=== PATIENT | female | born 1970 | race Caucasian/White ===

== ENCOUNTER 2021-09-30 11:14 | Emergency (ER) | payer MEDICAID, SELFPAY ==
[2021-09-30 11:46] VITALS: BMI 16.6
--- NOTE | 2021-09-30 11:54 | HMH.EDGENADL ---
ED Disposition Clinical Impression: Pyelonephritis Disposition: Home, Self-Care Condition on Discharge: Fair Instructions: DI for Urinary Tract Infection (UTI), DI for Urinary Tract Infection in Children Additional Instructions: Return to the emergency department or follow up with your PCP if symptoms do not begin to resolve. Prescriptions: Cefdinir [Omnicef 300mg Capsule] 300 mg PO BID #20 cap Prescription Printed Referrals: Provider,Referral, MD [Primary Care Provider] - Forms: Work/School Release - Critical Care Critical Care Time: No Attestation: On 09/30/21, the high probability of a clinically significant, sudden or life threatening deterioration of the following system(s) required my full and direct attention, intervention and personal management. The time I documented below is in addition to time spent performing reported procedures but includes the following listed in this critical care notation. Medical Decision Making - Medical Records Medical records reviewed: Yes: I reviewed the patient's medical records. - Sylvain Inquiry Pt receiving controlled substance: No Vital Signs: 09/30/21 12:09 09/30/21 13:27 Temperature 97.9 F 98.1 F Temperature Source Oral Pulse Rate 78 Pulse Rate [Left Radial] 85 Respiratory Rate 18 20 Blood Pressure 133/85 Blood Pressure [Right Arm] 143/91 H Blood Pressure Mean [Right Arm] 108 Blood Pressure Source [Right Arm] Automatic Cuff Blood Pressure Position [Right Arm] Sitting 02 Sat by Pulse Oximetry 98 Oxygen Delivery Method Room Air - Lab Data Lab Results 09/30/21 11:45: Urine Color Yellow, Urine Appearance Sl cloudy, Urine pH 6.0, Ur Specific Bates 1.025, Urine Protein Trace, Urine Glucose (UA) Negative, Urine Ketones Negative, Urine Blood 1+, Urine Nitrate Positive, Urine Bilirubin Negative, Urine Urobilinogen 1.0, Ur Leukocyte Esterase Trace, Urine RBC 5-10, Urine WBC 3-5, Ur Squamous Epith Cells 3-5, Urine Bacteria None Orders (Tests/Meds): ED MEDICATIONS Discontinued Medications Generic Name Dose Route Start Last Admin Trade Name Freq PRN Reason Stop Dose Admin Ibuprofen 600 mg 09/30/21 11:39 09/30/21 11:52 Ibuprofen 600 Mg Tablet PO 09/30/21 11:40 600 mg ONCE ONE Administration ORDERS Category Date Time Status Urine Culture Stat Micro 09/30/21 11:50 Received Medical Decision Narrative: Patient is a 50-year-old female presents emerged department with chief complaint of right-sided flank pain. Differential diagnosis patient includes musculoskeletal strain, pyelonephritis, among others. Given this we will obtain UA. Patient continued to be hemodynamically stable, well-appearing while here in the emergency department. UA is concerning for urinary tract infection, given this we will treat patient with cefdinir. Discussed return precautions, reassessment with her primary care physician. General Adult HPI - General Stated complaint: lower back pain Time Seen by Provider: 09/30/21 11:15 - History of Present Illness HPI narrative: Patient is a 50-year-old female with past medical history of breast cancer status post resection, patient in chemotherapy presenting to the emergency department with chief complaint of right lower back pain. Patient states that the pain has been going on for the past 2 days. She states it feels similar to when she has had a kidney infection in the past. She denies any past medical history of stones, is currently denying dysuria, abdominal pain. States she had 1 episode of emesis this morning. Otherwise she is not feeling nauseous although she has had decreased po intake for the past 2 days. She is denying headache, midline back pain, abdominal pain among others. - Related Data Previous Rx's Medication Instructions Recorded Cefdinir [Omnicef 300mg Capsule] 300 mg PO BID #20 cap 09/30/21 Allergies Allergy/AdvReac Type Severity Reaction Status Date / Time TORRI
[2021-09-30 11:57] LABS: Microscopic, Urine URINE MICROSCOPIC (MICROSCOPIC)
[2021-09-30 11:58] LABS: Appearance,Urine SL CLOUDY (Clear); Bilirubin,Urine Negative (Negative); Blood, Urine 1+ (Negative); Color,Urine YELLOW (Yellow); Glucose,Urine (UA) Negative (Negative); Ketones,Urine Negative (Negative); Leukocyte Esterase,Urine TRACE (Negative); Nitrate,Urine POSITIVE (Negative); Protein,Urine TRACE (Negative); Specific Gravity, Urine 1.025 (1.005-1.030)
[2021-09-30 12:09] VITALS: BP 143/91; PULSE 85; RESP 18; TEMP 36.6; O2SAT 98; BMI 75289.3
[2021-09-30 13:27] VITALS: BP 133/85; PULSE 78; RESP 20; TEMP 36.7; O2SAT 98
== END 2021-09-30 13:28 | disposition home or self-care (01) ==
PROVIDERS: Emergency Provider Emergency Medicine
DX: N12 Tubulo-interstitial nephritis, not specified as acute or chronic (principal); Z88.0 Allergy status to penicillin
CPT/HCPCS: 81001; 87086; 87088; 87186; 99282

== ENCOUNTER 2021-11-24 13:44 | Emergency (ER) | payer MEDICAID, SELFPAY ==
[2021-11-24] VITALS (7 sets, daily range): BP systolic 96–138; BP diastolic 51–85; PULSE 78–95; RESP 12–20; TEMP 36.5–36.8; O2SAT 97–100; BMI 16.4
--- NOTE | 2021-11-24 14:18 | CT_ITS ---
FINAL REPORT CLINICAL HISTORY: abdomen pain, generalized abd pain, denies n/v/d FINDINGS: CT OF THE ABDOMEN AND PELVIS WITH CONTRAST Axial CT images of the abdomen and pelvis were obtained after the administration of oral and iv contrast. Coronal reformatted images were also obtained and reviewed.This study was performed with techniques to keep radiation doses as low as reasonably achievable (ALARA). Individualized dose reduction techniques using automated exposure control or adjustment of mA and/or kV according to the patient's size were employed. Abdomen: There is mild bibasilar scarring.. The heart is normal in size. The liver has an unremarkable appearance, without evidence of mass or biliary ductal dilatation. There is mild nonspecific gallbladder wall thickening. The spleen is unremarkable. No adrenal mass is present. The pancreas has an unremarkable appearance. The kidneys are normal, without evidence of mass or hydronephrosis. The aorta is normal in caliber. There is no free fluid or adenopathy. No mass or abnormal fluid collection is seen. There is mild colon wall thickening with stranding adjacent to the ascending colon which may represent colitis. Pelvis: The appendix is normal. The urinary bladder is unremarkable. No inflammatory process is seen. There is no evidence of mass or adenopathy. There is no evidence of bowel obstruction. IMPRESSION: Mild colon wall thickening with stranding adjacent to the ascending colon may represent colitis. Mild, nonspecific gallbladder wall thickening. Reviewed, Interpreted and Dictated by Ludin Good III, MD Transcribed by Tavia Alicia Authenticated by Ludin Good III, MD on 11/24/2021 04:15:38 PM [facility]
[2021-11-24 14:34] LABS: Microscopic, Urine URINE MICROSCOPIC (MICROSCOPIC)
[2021-11-24 14:37] LABS: Basophils % 0.2 % (0.1-2.0); Hematocrit 42.7 % (37.0-47.0); Hemoglobin 13.8 g/dL (12.2-16.2); Lymphocytes # 1.5 K/mm3 (0.7-4.5); Mean Corpuscular HGB Conc 32.2 g/dL (31.8-35.4); Mean Corpuscular Hemoglobin 38.7 pg (27.0-31.2); Mean Corpuscular Volume 120.2 fl (81-99); Mean Platelet Volume 8.5 fl (7.4-10.4); Monocytes # 0.4 K/mm3 (0.1-1.0); Monocytes % 6.3 % (1.7-9.3); Neutrophils # 3.6 K/mm3 (1.8-7.8); Neutrophils % 65.4 % (37.0-80.0); Platelet Count 249 K/mm3 (142-424); Red Blood Count 3.55 M/mm3 (4.20-5.40); Red Cell Distribution Width 14.9 % (11.5-17.5); White Blood Count 5.5 K/mm3 (4.8-10.8)
[2021-11-24 14:41] LABS: Alanine Aminotransferase 26 U/L (12-78); Albumin Level 4.7 g/dl (3.5-5.0); Albumin/Globulin Ratio 1.4 (1.1-1.8); Alkaline Phosphatase 88 U/L (38-126); Amylase 86 U/L (30-110); Anion Gap 11.3 mEq/L (5-15); Aspartate Amino Transferase 68 U/L (14-36); Bilirubin,Total 0.5 mg/dl (0.2-1.3); Blood Urea Nitrogen 7 mg/dl (7-17); Calcium 8.6 mg/dl (8.4-10.2); Carbon Dioxide 32 mmol/L (22.0-30.0); Chloride 101 mmol/L (98-107); Creatinine Clearance Estimated 51 mL/min (50-200); Estimated Glomerular Filt Rate 76 ml/min (>60); GFR (African American) 92 ML/MIN (>60); Globulin 3.4 g/dL (1.3-3.2); Glucose 87 mg/dl (74-100); Lipase 103 U/L (23-300); Potassium 3.3 mmoL/L (3.5-5.1); Sodium 141 mmol/L (136-145); Total Protein,Serum 8.1 g/dl (6.3-8.2)
[2021-11-24 14:42] LABS: Appearance,Urine SL CLOUDY (Clear); Bilirubin,Urine Negative (Negative); Blood, Urine 1+ (Negative); Color,Urine YELLOW (Yellow); Glucose,Urine (UA) Negative (Negative); Ketones,Urine Negative (Negative); Leukocyte Esterase,Urine 2+ (Negative); Nitrate,Urine POSITIVE (Negative); PH,Urine 6.5 (5.0-8.5); Protein,Urine Negative (Negative); Specific Gravity, Urine 1.015 (1.005-1.030); Urobilinogen,Urine 0.2 EU/dl (0.2)
--- NOTE | 2021-11-24 14:52 | HMH.EDABDPAI ---
ED Disposition Clinical Impression: Colitis, Gallbladder anomaly UTI (urinary tract infection) Qualifiers: Urinary tract infection type: site unspecified Hematuria presence: without hematuria Qualified Code(s): N39.0 - Urinary tract infection, site not specified Disposition: Home, Self-Care Condition on Discharge: Good Instructions: DI for Colitis Prescriptions: Sulfamethoxazole/Trimethoprim [Bactrim DS tablet] 1 each PO BID #14 tab Prescription Printed metroNIDAZOLE [metroNIDAZOLE 500mg Tablet] 500 mg PO TID #30 tab Prescription Printed Referrals: ProviderMarie MD [Primary Care Provider] - Ludin Byrd MD [Staff Physician] - - Critical Care Critical Care Time: No Attestation: On 11/24/21, the high probability of a clinically significant, sudden or life threatening deterioration of the following system(s) required my full and direct attention, intervention and personal management. The time I documented below is in addition to time spent performing reported procedures but includes the following listed in this critical care notation. Medical Decision Making - Medical Records Medical records reviewed: Yes: I reviewed the patient's medical records. - Sylvain Inquiry Pt receiving controlled substance: No Vital Signs: 11/24/21 13:45 11/24/21 14:21 11/24/21 14:30 Temperature 97.7 F Temperature Source Oral Pulse Rate 84 90 Pulse Rate [Left Radial] 91 H Respiratory Rate 15 13 15 Blood Pressure 138/85 131/73 Blood Pressure [Right Arm] 96/51 L Blood Pressure Mean 102 92 Blood Pressure Mean [Right Arm] 66 Blood Pressure Source [Right Arm] Automatic Cuff Blood Pressure Position [Right Arm] Sitting 02 Sat by Pulse Oximetry 99 100 99 Oxygen Delivery Method Room Air 11/24/21 15:31 Temperature Temperature Source Pulse Rate 95 H Pulse Rate [Left Radial] Respiratory Rate 20 Blood Pressure 102/77 L Blood Pressure [Right Arm] Blood Pressure Mean 83 Blood Pressure Mean [Right Arm] Blood Pressure Source [Right Arm] Blood Pressure Position [Right Arm] 02 Sat by Pulse Oximetry 100 Oxygen Delivery Method - Lab Data Lab Results 11/24/21 14:20: Urine Color Yellow, Urine Appearance Sl cloudy, Urine pH 6.5, Ur Specific Lor[place] 1.015, Urine Protein Negative, Urine Glucose (UA) Negative, Urine Ketones Negative, Urine Blood 1+, Urine Nitrate Positive, Urine Bilirubin Negative, Urine Urobilinogen 0.2, Ur Leukocyte Esterase 2+ A, Urine RBC 3-5, Urine WBC 5-10, Ur Squamous Epith Cells 3-5, Urine Bacteria Trace 11/24/21 14:20: WBC 5.5, RBC 3.55 L, Hgb 13.8, Hct 42.7, MCV 120.2 H, MCH 38.7 H, MCHC 32.2, RDW 14.9, Plt Count 249, MPV 8.5, Neut % (Auto) 65.4, Lymph % (Auto) 28.0, [place] % (Auto) 6.3, Eos % (Auto) 0.0 L, Baso % (Auto) 0.2, Neut # (Auto) 3.6, Lymph # (Auto) 1.5, [place] # (Auto) 0.4, Eos # (Auto) 0.0, Baso # (Auto) 0.0 11/24/21 14:20: Sodium 141, Potassium 3.3 L, Chloride 101, Carbon Dioxide 32 H, Anion Gap 11.3, BUN 7, Creatinine 0.80, Estimated Creat Clear 51, Estimated GFR 76, Est GFR ( Amer) 92, Glucose 87, Calcium 8.6, Total Bilirubin 0.5, AST 68 H, ALT 26, Alkaline Phosphatase 88, Total Protein 8.1, Albumin 4.7, Globulin 3.4 H, Albumin/Globulin Ratio 1.4, Amylase 86, Lipase 103 Result diagrams: 11/24/21 14:20 11/24/21 14:20 Orders (Tests/Meds): ED MEDICATIONS Generic Name Dose Route Start Last Admin Trade Name Freq PRN Reason Stop Dose Admin Dicyclomine HCl 20 mg 11/24/21 16:23 Dicyclomine 10mg Capsule PO 11/24/21 16:24 ONCE ONE Discontinued Medications Generic Name Dose Route Start Last Admin Trade Name Freq PRN Reason Stop Dose Admin Sodium Chloride 1,000 mls @ 999 mls/hr 11/24/21 14:30 11/24/21 14:25 Sod Chlor 0.9% 1000ml Bag IV 11/24/21 15:30 999 mls/hr .Q1H1M RUSTY Administration Iopamidol 65 ml 11/24/21 15:15 11/24/21 15:16 Iopamidol-370 (76%);100ml Bottle IV 11/24/21 15:16 65 ml ONCE ONE Administration Ke
--- NOTE | 2021-11-24 15:15 | PC.NURSE ---
notified rad of CT order, spoke with Juan
[2021-11-24 15:39] LABS: Bacteria,Urine Trace /lpf
--- NOTE | 2021-11-24 16:26 | PC.NURSE ---
asked ER MD about antibiotics for colitis r/t CT finding, ER gave no new orders at this time
== END 2021-11-24 16:40 | disposition home or self-care (01) ==
PROVIDERS: Emergency Provider Emergency Medicine
DX: N39.0 Urinary tract infection, site not specified (principal); A49.8 Other bacterial infections of unspecified site; Z79.899 Other long term (current) drug therapy; Z88.0 Allergy status to penicillin
CPT/HCPCS: 74177; 80053; 81001; 82150; 83690; 85025; 87086; 87088; 87186; 96361; 96365; 96374; 96375; 99284; J2405; Q9967

== ENCOUNTER 2022-10-18 09:28 | Emergency (ER) | payer MEDICAID, SELFPAY ==
[2022-10-18 09:29] VITALS: BP 143/90; PULSE 104; RESP 17; TEMP 36.4; O2SAT 99; BMI 14.4
--- NOTE | 2022-10-18 09:38 | HMH.EDGENADL ---
Discharge Plan Disposition Patient Disposition: Home, Self-Care Prescriptions Prescriptions: New hydroxyzine pamoate [Vistaril] 25 mg capsule 25 mg PO Q8H PRN (Reason: itching ) 7 Days Qty: 20 0RF No Action cefdinir 300 MG capsule 300 mg PO BID Qty: 20 0RF metronidazole 500 MG tablet 500 mg PO TID Qty: 30 0RF sulfamethoxazole-trimethoprim 1 EACH tablet 1 each PO BID Qty: 14 0RF Referrals Follow up/Referrals: Provider,Referral, MD [Primary Care Provider] - See instructions Activity Restrictions/Add. Instructions Additional Instructions/Restrictions: He presented today with an urticarial rash. This is possibly secondary to your clindamycin. Please stop your clindamycin follow-up with your dentist to discuss changing medication. You been given a dose of dexamethasone which should last 72 hours and no need for additional steroids. You may take your Vistaril as needed for itching. Please return with any systemic symptoms of an anaphylactic reaction including wheezing shortness of breath vomiting or passing out. Clinical Impressions Clinical Impression: Urticarial rash, Adverse drug reaction Instructions Patient Instructions: DI for Skin Abscess Discharge ED Provider: Nj Remy General Adult HPI General Chief complaint: Skin/Abscess/Foreign Body Stated complaint: Rash Time Seen by Provider: 10/18/22 09:38 History of Present Illness HPI narrative: Patient is a 51-year-old female presenting today with a rash. States that its been diffuse in nature multiple different locations of her body states at times that it has been raised like hives. Denies any respiratory symptoms GI symptoms or cardiovascular symptoms. Denies any history of IgE mediated allergic reactions. Denies any history of anaphylaxis. States that she recently began clindamycin for a dental infection. She is on clindamycin because she has a penicillin allergy. She has not tried any medications at home. Denies any pain or other symptoms at this moment Related Data Previous Rx's Medication Instructions Recorded cefdinir 300 mg capsule 300 mg PO BID #20 caps 09/30/21 metronidazole 500 mg tablet 500 mg PO TID #30 tabs 11/24/21 sulfamethoxazole 800 1 each PO BID #14 tabs 11/24/21 mg-trimethoprim 160 mg tablet hydroxyzine pamoate 25 mg capsule 25 mg PO Q8H PRN itching 7 days 10/18/22 (Vistaril) #20 caps Allergies Allergy/AdvReac Type Severity Reaction Status Date / Time PENICILLIN Allergy Intermediate HIVES/RASH Uncoded 08/30/17 14:56 [facility] Disclaimer: The information contained in this section may have been updated after the patient was seen, as this information can be updated by other users. Medical History (Updated 10/18/22 @ 09:51 by Nj Remy MD) Breast cancer Family History (Updated 10/18/22 @ 09:45 by Maryellen Baker RN) Other No significant family history Social History (Updated 10/18/22 @ 09:45 by Maryellen Baker RN) Smoking Status: Current every day smoker alcohol intake: current current occupational status: other Travel in the last 8 weeks: None ROS Obtained: Yes All systems reviewed & no additional complaints except as documented Physical Exam General General appearance: alert and in no apparent distress Head Head exam: atraumatic and normocephalic Eye Eye exam: Present normal appearance, PERRL and EOMI ENT ENT exam: Present normal exam and normal oropharynx Neck Neck exam: Present normal inspection and full ROM Chest Chest inspection: Present normal inspection and symmetric chest wall rise Respiratory Respiratory exam: Present normal lung sounds bilaterally; Absent respiratory distress Cardiovascular Cardiovascular exam: Present regular rate; Absent tachycardia Neurological Exam Neurological exam: Present alert and oriented X3 Skin Skin exam: Present other (There is a diffuse erythematous rash confluent along her abdomen upper arms and some on her back.
--- NOTE | 2022-10-18 09:38 | PC.NURSE ---
DR WALLACE AT BEDSIDE TO EVALUATE PT
[2022-10-18 10:00] VITALS: BP 127/86; PULSE 101; O2SAT 98
[2022-10-18 10:02] VITALS: BP 127/86; PULSE 103; RESP 18; TEMP 36.4; O2SAT 97
== END 2022-10-18 10:02 | disposition home or self-care (01) ==
PROVIDERS: Emergency Provider Student in an Organized Health Care Education/Training Program
DX: L50.0 Allergic urticaria (principal); F17.210 Nicotine dependence, cigarettes, uncomplicated
CPT/HCPCS: 99283; 99284

== ENCOUNTER 2022-10-19 12:17 | Emergency (ER) | payer MEDICAID, SELFPAY ==
[2022-10-19] VITALS (9 sets, daily range): BP systolic 92–157; BP diastolic 59–97; PULSE 58–81; RESP 14–23; TEMP 36.4–36.7; O2SAT 96–100; BMI 14.4
--- NOTE | 2022-10-19 12:06 | ECG_ITS ---
APPROVED REPORT Exam: Resting ECG HR:70 bpm ECG Measurements Heart Rate [address] 165 P 90 QRSd 93 QRS 88 QT 419 T 72 QTc 440 Conclusion SINUS RHYTHM WITH MARKED SINUS ARRHYTHMIA POSSIBLE RIGHT VENTRICULAR CONDUCTION DELAY [RSR (QR) IN V1/V2] BORDERLINE ECG UNCONFIRMED REPORT Electronically signed by : Kranthi Reinoso MD 10/19/2022 20:19:45
--- NOTE | 2022-10-19 12:25 | XR_ITS ---
FINAL REPORT CLINICAL HISTORY: mid sternal pain FINDINGS: TWO-VIEW CHEST The heart size is normal. The mediastinum is normal. There is streaky opacity in the right middle lobe which may be due to mild infiltrate. There is no pneumothorax. IMPRESSION: Right middle lobe opacity, may be due to mild infiltrate. Reviewed, Interpreted and Dictated by Rajan Anna MD Transcribed by Reyna Martinez Authenticated and [facility]
[2022-10-19 13:06] LABS: Basophils # 0.1 K/mm3 (0-0.2); Basophils % 0.6 % (0.1-2.0); Hematocrit 41.1 % (37.0-47.0); Hemoglobin 13.7 g/dL (12.2-16.2); Lymphocytes # 1.3 K/mm3 (0.7-4.5); Lymphocytes % 9.4 % (10-50); Mean Corpuscular HGB Conc 33.4 g/dL (31.8-35.4); Mean Corpuscular Hemoglobin 36.6 pg (27.0-31.2); Mean Corpuscular Volume 109.5 fl (81-99); Mean Platelet Volume 8.4 fl (7.4-10.4); Monocytes # 0.6 K/mm3 (0.1-1.0); Monocytes % 4.6 % (1.7-9.3); Neutrophils # 11.2 K/mm3 (1.8-7.8); Neutrophils % 85.3 % (37.0-80.0); Platelet Count 263 K/mm3 (142-424); Red Blood Count 3.75 M/mm3 (4.20-5.40); Red Cell Distribution Width 14.9 % (11.5-17.5); White Blood Count 13.2 K/mm3 (4.8-10.8)
[2022-10-19 13:08] LABS: MANUAL DIFFERENTIAL MANUAL DIFFERENTIAL (MANUAL DIFF)
[2022-10-19 13:22] LABS: Lymphocytes % 12 % (10-50); Monocytes % 10 % (2-9); Neutrophils % 78 % (42-76); Total Cells Counted 100
[2022-10-19 13:23] LABS: Platelet Estimate Normal; RBC Morphology Normal
--- NOTE | 2022-10-19 13:32 | HMH.EDGENADL ---
Discharge Plan Disposition Patient Disposition: Home, Self-Care Condition: Good Prescriptions Prescriptions: New levofloxacin 500 mg tablet 500 mg PO DAILY 7 Days Qty: 7 0RF metronidazole 500 mg tablet 500 mg PO Q8H 10 Days Qty: 30 0RF ondansetron 4 mg tablet,disintegrating 4 mg PO Q8H PRN (Reason: nausea and vomiting) Qty: 10 0RF No Action cefdinir 300 MG capsule 300 mg PO BID Qty: 20 0RF metronidazole 500 MG tablet 500 mg PO TID Qty: 30 0RF sulfamethoxazole-trimethoprim 1 EACH tablet 1 each PO BID Qty: 14 0RF hydroxyzine pamoate [Vistaril] 25 mg capsule 25 mg PO Q8H PRN (Reason: itching ) 7 Days Qty: 20 0RF Referrals Follow up/Referrals: Provider,Referral, MD [Primary Care Provider] - See instructions Activity Restrictions/Add. Instructions Additional Instructions/Restrictions: Levaquin and Flagyl as prescribed. Zofran as needed for nausea. Collect a diarrhea sample using the provided supplies and return it along with the order form to ER registration at [facility] for testing. Obtain the results of this test from your primary care provider the next day. Follow-up with primary care provider, call tomorrow to make appointment. Additional instructions for ABDOMINAL PAIN: See your physician as soon as possible for further evaluation. Return immediately if worsening abdominal pain, vomiting, shortness of breath, fever, vomiting of blood or abdominal distention. Additional instructions for CHEST PAIN: See your physician as soon as possible for further evaluation. Return immediately if worsening chest pain, vomiting, shortness of breath, fever, coughing of blood. Clinical Impressions Clinical Impression: Colitis, Atypical chest pain, Pneumonia Stand Alone Forms Stand Alone Forms: Work/School Release Instructions Patient Instructions: DI for Atypical Chest Pain, DI for Colitis Discharge ED Provider: Cyril Sullivan General Adult HPI General Chief complaint: Chest Pain Stated complaint: CP Time Seen by Provider: 10/19/22 13:35 Mode of Arrival: EMS Source of Information: Patient, EMS and Medical Record Limitations: No Limitations Description of Symptoms (Recalled from ER Triage Doc. by RN): c/o n/v and mid sternal pain, states the chest pain gets worse after she vomits. Symptoms started today History of Present Illness HPI narrative: Patient states that this morning she developed epigastric pain vomiting and diarrhea. 2 episodes of diarrhea without blood. Multiple episodes of vomiting. After she began vomiting she also developed chest pain up and down her sternal area. Denies shortness of breath or diaphoresis. She does not have a known history of heart disease. She is a smoker. She does not have hypertension, diabetes, or hyperlipidemia. Her father has had a heart attack. She has never had any abdominal surgeries. She was seen in this emergency department yesterday for an urticarial rash. She had recently been started on clindamycin about a week ago by her dentist. That medication was stopped and she was put on steroids and hydroxyzine. Her urticaria is now better. Related Data Previous Rx's Medication Instructions Recorded cefdinir 300 mg capsule 300 mg PO BID #20 caps 09/30/21 metronidazole 500 mg tablet 500 mg PO TID #30 tabs 11/24/21 sulfamethoxazole 800 1 each PO BID #14 tabs 11/24/21 mg-trimethoprim 160 mg tablet hydroxyzine pamoate 25 mg capsule 25 mg PO Q8H PRN itching 7 days 10/18/22 (Vistaril) #20 caps levofloxacin 500 mg tablet 500 mg PO DAILY 7 days #7 tabs 10/19/22 metronidazole 500 mg tablet 500 mg PO Q8H 10 days #30 tabs 10/19/22 ondansetron 4 mg disintegrating 4 mg PO Q8H PRN nausea and 10/19/22 tablet vomiting #10 tabs Allergies Allergy/AdvReac Type Severity Reaction Status Date / Time PENICILLIN Allergy Intermediate HIVES/RASH Uncoded 08/30/17 14:56 [facility] Disclaimer: The information contained in this section m
--- NOTE | 2022-10-19 13:42 | CT_ITS ---
FINAL REPORT TECHNIQUE: After the administration of intravenous contrast, axial images were obtained through the abdomen and pelvis by computed tomography. The study was performed with techniques to keep radiation dose as low as reasonably achievable, (ALARA). Individual dose reduction techniques using automated exposure control or adjustment of mA and/or kV according to the patient's size were employed. CLINICAL HISTORY: abdo pain COMPARISON: November 2021 FINDINGS: Abdomen: The lung bases are clear. The liver parenchyma is homogeneous. The gallbladder is present. The spleen, pancreas, adrenals and kidneys appear unremarkable. The aorta is normal in caliber. There is no free fluid or adenopathy. There is prominence of the colonic mucosa particularly the transverse, descending and sigmoid consistent with acute infectious or inflammatory colitis. Pelvis: The appendix is not identified. The urinary bladder is unremarkable. There is a trace amount of free fluid of uncertain etiology. IMPRESSION: Acute infectious or inflammatory colitis. Reviewed, Interpreted and Dictated by Rajan Anna MD Transcribed by Rickie Hale Authenticated and [facility]
[2022-10-19 13:51] LABS: Amylase 80 U/L (30-110); Anion Gap 4.4 mEq/L (5-15); Blood Urea Nitrogen 14 mg/dl (7-17); Carbon Dioxide 24 mmol/L (22.0-30.0); Chloride 105 mmol/L (98-107); Creatinine Clearance Estimated 45 mL/min (50-200); Estimated Glomerular Filt Rate 76 ml/min (>60); GFR (African American) 92 ML/MIN (>60); Glucose 129 mg/dl (74-100); Lipase 93 U/L (23-300); Potassium 3.4 mmoL/L (3.5-5.1); Sodium 130 mmol/L (136-145)
--- NOTE | 2022-10-19 14:07 | PC.NURSE ---
contacted radiology for ct scan
--- NOTE | 2022-10-19 14:08 | PC.NURSE ---
contacted lab for added liver panel
[2022-10-19 14:19] LABS: Alanine Aminotransferase 15 U/L (12-78); Aspartate Amino Transferase 32 U/L (14-36); Bilirubin,Unconjugated 0.8 mg/dL (0.0-1.1)
[2022-10-19 14:20] LABS: Albumin Level 4.1 g/dl (3.5-5.0); Alkaline Phosphatase 85 U/L (38-126); Bilirubin,Direct 0.3 mg/dl (0.0-0.4); Bilirubin,Indirect 0.8 mg/dL (0.0-0.9); Bilirubin,Total 1.1 mg/dl (0.2-1.3); Total Protein,Serum 7.3 g/dl (6.3-8.2)
--- NOTE | 2022-10-19 14:43 | PC.NURSE ---
pt ambulatory to restroom, no complications
[2022-10-19 14:45] LABS: Troponin I < 0.01 ng/ml (0.00-0.034)
--- NOTE | 2022-10-19 16:09 | PC.NURSE ---
rounded on pt, no needs at this time
[2022-10-19 17:16] LABS: Troponin I < 0.01 ng/ml (0.00-0.034)
== END 2022-10-19 17:54 | disposition home or self-care (01) ==
PROVIDERS: Emergency Provider Emergency Medicine
DX: R07.89 Other chest pain (principal); J18.9 Pneumonia, unspecified organism; K52.9 Noninfective gastroenteritis and colitis, unspecified; F17.210 Nicotine dependence, cigarettes, uncomplicated; Z85.3 Personal history of malignant neoplasm of breast
CPT/HCPCS: 71046; 74177; 80048; 80076; 82150; 83690; 84484; 85007; 85025; 93005; 96361; 96374; 96375; 99285; Q9967

== ENCOUNTER 2023-08-11 10:40 | Inpatient (IN) | payer SELFPAY ==
[2023-08-11] VITALS (9 sets, daily range): BP systolic 94–106; BP diastolic 49–68; PULSE 94–138; RESP 16–23; TEMP 36.5–36.9; O2SAT 98–99; BMI 14.4; BMI 14.7
--- NOTE | 2023-08-11 10:51 | XR_ITS ---
FINAL REPORT CLINICAL HISTORY: dyspnea covid since tuesday (08/07/23) COMPARISON: 10/19/2022 FINDINGS: SINGLE-VIEW CHEST The heart size is normal. The mediastinum is normal. There is a large dense region of apparent airspace opacity in the left upper lobe measuring 8.5 x 6.0 cm, favor to represent acute pneumonia. No effusion is identified. There is no pneumothorax. IMPRESSION: Large opacity in the left upper lobe favored to represent acute pneumonia. Recommend follow-up radiographs. If opacity persists, CT scan may be of value. Reviewed, Interpreted and Dictated by Rajan Anna MD Transcribed by Reyna Martinez Authenticated and [facility]
--- NOTE | 2023-08-11 10:53 | HMH.EDGENADL ---
Discharge Plan Disposition Patient Disposition: Admitted Prescriptions Prescriptions: No Action No Known Home Medications Referrals Follow up/Referrals: Provider,Marie, [Primary Care Provider] - See instructions Clinical Impressions Clinical Impression: Necrotizing pneumonia, Tachycardia, COVID-19, Sepsis Discharge ED Provider: Val Ballesteros General Adult HPI General Chief complaint: Fever Stated complaint: covid positive, cough congestion fever vomiting Time Seen by Provider: 08/11/23 10:47 History of Present Illness HPI narrative: Patient is a 52-year-old female with a history of chronic smoking but does not carry diagnosis of COPD presents today with 4 days of cough fevers chills body aches some nausea decreased p.o. intake. No respiratory distress from historical standpoint. Dates that she took a home COVID test which was positive. Related Data Home Medications Medication Instructions Recorded Confirmed No Known Home Medications 08/11/23 08/11/23 Allergies Allergy/AdvReac Type Severity Reaction Status Date / Time penicillin G Allergy Severe Hives Verified 08/11/23 11:43 [facility] PFS Disclaimer: The information contained in this section may have been updated after the patient was seen, as this information can be updated by other users. Medical History (Updated 08/11/23 @ 12:09 by Dudley Remy MD) Breast cancer Family History (Updated 10/18/22 @ 09:45 by Maryellen Baker RN) Other No significant family history Social History (Updated 10/18/22 @ 09:51 by Dudley Remy MD) Smoking Status: Current every day smoker alcohol intake: current current occupational status: other Travel in the last 8 weeks: None ROS Obtained: Yes All systems reviewed & no additional complaints except as documented Physical Exam General General appearance: cachectic Respiratory Respiratory exam: Absent normal lung sounds bilaterally, respiratory distress, wheezes, stridor or accessory muscle use Cardiovascular Cardiovascular exam: Present tachycardia (Heart rate 140 on my exam) Neurological Exam Neurological exam: Present alert and oriented X3 Medical Decision Making Sylvain Inquiry Pt receiving controlled substance: No Vital Signs: 08/11/23 10:41 08/11/23 12:00 Temperature 98.4 F Temperature Source Oral Pulse Rate 120 H Pulse Rate [Left Radial] 138 H Respiratory Rate 20 21 Blood Pressure 100/62 L Blood Pressure [Right Arm] 94/68 L Blood Pressure Mean 70 Blood Pressure Mean [Right Arm] 76 Blood Pressure Source [Right Arm] Automatic Cuff Blood Pressure Position [Right Arm] Sitting 02 Sat by Pulse Oximetry 99 98 Oxygen Delivery Method Room Air Room Air Lab Data Lab results reviewed: Yes I reviewed the patient's lab results. Lab Results 08/11/23 10:55: WBC 26.4 H*, RBC 3.84 L, Hgb 14.0, Hct 41.4, MCV 107.8 H, MCH 36.4 H, MCHC 33.8, RDW 13.0, Plt Count 679 H, MPV 8.2, Neut % (Auto) 87.8 H, Lymph % (Auto) 3.5 L, [place] % (Auto) 8.3, Eos % (Auto) 0.2, Baso % (Auto) 0.2, Neut # (Auto) 23.2 H, Lymph # (Auto) 0.9, [place] # (Auto) 2.2 H, Eos # (Auto) 0.1, Baso # (Auto) 0.1, Sodium 123 L, Potassium 3.4 L, Chloride 85 L, Carbon Dioxide 29, Anion Gap 12.4, BUN 20 H, Creatinine 0.90, Estimated Creat Clear 39, Estimated GFR 66, Est GFR ( Amer) 80, Glucose 119 H, Calcium 8.3 L, Total Bilirubin 0.8, AST 108 H, ALT 36, Alkaline Phosphatase 136 H, Total Protein 7.6, Albumin 3.7, Globulin 3.9 H, Albumin/Globulin Ratio 0.9 L 08/11/23 10:55 08/11/23 10:55 Orders (Tests/Meds): ED MEDICATIONS Generic Name Dose Route Start Last Admin Trade Name Fidel PRN Reason Stop Dose Admin Ceftriaxone Sodium 2 gm/ 100 mls @ 200 mls/hr 08/11/23 11:45 08/11/23 12:07 Sodium Chloride IV 08/21/23 11:44 Not Given Q12H RUSTY Metronidazole 500 mg in 100 mls @ 100 mls/hr 08/11/23 11:36 Flagyl 500mg/100ml Ivpb IV 08/11/23 12:35
[2023-08-11 11:05] LABS: Basophils # 0.1 K/mm3 (0-0.2); Basophils % 0.2 % (0.1-2.0); Eosinophils # 0.1 K/mm3 (0.0-0.4); Eosinophils % 0.2 % (0.1-12.0); Hematocrit 41.4 % (37.0-47.0); Lymphocytes # 0.9 K/mm3 (0.7-4.5); Lymphocytes % 3.5 % (10-50); Mean Corpuscular HGB Conc 33.8 g/dL (31.8-35.4); Mean Corpuscular Hemoglobin 36.4 pg (27.0-31.2); Mean Corpuscular Volume 107.8 fl (81-99); Mean Platelet Volume 8.2 fl (7.4-10.4); Monocytes # 2.2 K/mm3 (0.1-1.0); Monocytes % 8.3 % (1.7-9.3); Neutrophils # 23.2 K/mm3 (1.8-7.8); Neutrophils % 87.8 % (37.0-80.0); Red Blood Count 3.84 M/mm3 (4.20-5.40)
[2023-08-11 11:16] LABS: Chloride 85 mmol/L (98-107); Sodium 123 mmol/L (136-145)
[2023-08-11 11:17] LABS: Potassium 3.4 mmoL/L (3.5-5.1)
[2023-08-11 11:19] LABS: Alanine Aminotransferase 36 U/L (12-78); Alkaline Phosphatase 136 U/L (38-126); Anion Gap 12.4 mEq/L (5-15); Aspartate Amino Transferase 108 U/L (14-36); Bilirubin,Total 0.8 mg/dl (0.2-1.3); Blood Urea Nitrogen 20 mg/dl (7-17); Carbon Dioxide 29 mmol/L (22.0-30.0); Creatinine Clearance Estimated 39 mL/min (50-200); Estimated Glomerular Filt Rate 66 ml/min (>60); GFR (African American) 80 ML/MIN (>60)
[2023-08-11 11:20] LABS: Albumin Level 3.7 g/dl (3.5-5.0); Albumin/Globulin Ratio 0.9 (1.1-1.8); Calcium 8.3 mg/dl (8.4-10.2); Globulin 3.9 g/dL (1.3-3.2); Glucose 119 mg/dl (74-100); Total Protein,Serum 7.6 g/dl (6.3-8.2)
[2023-08-11 11:29] LABS: Platelet Count 679 K/mm3 (142-424); White Blood Count 26.4 K/mm3 (4.8-10.8)
[2023-08-11 11:30] LABS: MANUAL DIFFERENTIAL MANUAL DIFFERENTIAL (MANUAL DIFF)
--- NOTE | 2023-08-11 11:59 | EXP.PHA.CONS ---
Pharmacy Consult Date: 08/11/23 Time: 11:59 Referring provider: DR. JONES Reason for Consult:: VANCOMYCIN DOSING Allergies Allergy/AdvReac Type Severity Reaction Status Date / Time penicillin G Allergy Severe Hives Verified 08/11/23 11:43 Home Medications Medication Instructions Recorded Confirmed Type cefdinir 300 mg capsule 300 mg PO BID #20 caps 09/30/21 Rx metronidazole 500 mg tablet 500 mg PO TID #30 tabs 11/24/21 Rx sulfamethoxazole 800 1 each PO BID #14 tabs 11/24/21 Rx mg-trimethoprim 160 mg tablet hydroxyzine pamoate 25 mg capsule 25 mg PO Q8H PRN itching 7 days 10/18/22 Rx (Vistaril) #20 caps levofloxacin 500 mg tablet 500 mg PO DAILY 7 days #7 tabs 10/19/22 Rx metronidazole 500 mg tablet 500 mg PO Q8H 10 days #30 tabs 10/19/22 Rx ondansetron 4 mg disintegrating 4 mg PO Q8H PRN nausea and 10/19/22 Rx tablet vomiting #10 tabs New Prescriptions to Start Prescriptions: Height: 1.52 m Weight: 33.566 kg Laboratory Results:: Laboratory Results - last 24 hr 08/11/23 10:55: WBC 26.4 H*, RBC 3.84 L, Hgb 14.0, Hct 41.4, MCV 107.8 H, MCH 36.4 H, MCHC 33.8, RDW 13.0, Plt Count 679 H, MPV 8.2, Neut % (Auto) 87.8 H, Lymph % (Auto) 3.5 L, [place] % (Auto) 8.3, Eos % (Auto) 0.2, Baso % (Auto) 0.2, Neut # (Auto) 23.2 H, Lymph # (Auto) 0.9, [place] # (Auto) 2.2 H, Eos # (Auto) 0.1, Baso # (Auto) 0.1, Sodium 123 L, Potassium 3.4 L, Chloride 85 L, Carbon Dioxide 29, Anion Gap 12.4, BUN 20 H, Creatinine 0.90, Estimated Creat Clear 39, Estimated GFR 66, Est GFR ( Amer) 80, Glucose 119 H, Calcium 8.3 L, Total Bilirubin 0.8, AST 108 H, ALT 36, Alkaline Phosphatase 136 H, Total Protein 7.6, Albumin 3.7, Globulin 3.9 H, Albumin/Globulin Ratio 0.9 L Medical History: Medical History (Updated 08/11/23 @ 10:56 by Dudley Remy MD) Breast cancer Assessment and Plan Assessment and plan all Dx Assessment and Plan for all problems:: Pharmacokinetic dosing service Objective: Patient: Floor: Age: 52 yo Serum creatinine: 0.9 mg/dL Height: 60.0 Inches Weight (kg): 33.5 Assessment: IBW (kg): 50.00 Dosing wt(kg): 33.5 Estimated Creatinine clearance (ml/min): 46.0 CRCL method: Cockcroft and Gault using ibw(default). Drug selected: Vancomycin Loading dose (mg): 0 Vd (liters): 26.8 (factor used: 0.8 L/kg) Benjamin (hr-1): 0.043 Half life (hrs): 16.12 Recommended dose: 500 mg Interval: 18 hrs Infusion time (hrs): 2.0 Predicted peak (mcg/mL): 33.2 Predicted trough (mcg/mL): 16.69 Total body weight is being used for vancomycin dosing. Recommendations: Give 1x dose of vancomcyin 750 mg. Then continue with vancomycin 500 mg q 18 hrs with an expected Cpeak of 33.2 mcg/ml and an expected Ctrough of 16.69 mcg/ml. ----Vanco only - ignore for aminoglycosides----- CLvanco= 1.15 L/hr AUC 0-24 /CRISTOPHER Data: CRISTOPHER 0.5 mcg/mL: AUC/CRISTOPHER: 1159.4 CRISTOPHER 1.0 mcg/mL: AUC/CRISTOPHER: 579.7 --------- CRISTOPHER 1.5 mcg/mL: AUC/CRISTOPHER: 386.5 CRISTOPHER 2.0 mcg/mL: AUC/CRISTOPHER: 289.9
[2023-08-11 12:04] LABS: Coronavirus 19, PCR Not Detected (NotDetected); Influenza A, PCR Not Detected (NotDetected); Influenza B, PCR Not Detected (NotDetected)
[2023-08-11 12:07] LABS: Lymphocytes % 6 % (10-50); Monocytes % 7 % (2-9); Neutrophils % 86 % (42-76); Total Cells Counted 100
--- NOTE | 2023-08-11 12:07 | CT_ITS ---
FINAL REPORT TECHNIQUE: Axial images were obtained through the chest without contrast. Sagittal and coronal reformatted images were obtained and reviewed. This study was performed with techniques to keep radiation doses as low as reasonably achievable (ALARA). Individualized dose reduction techniques using automated exposure control or adjustment of mA and/or kV according to the patient's size were employed. CLINICAL HISTORY: further characterization of JORGE L pna FINDINGS: There are few small calcified mediastinal lymph nodes. The heart size is normal. There is no pericardial or pleural effusion. Limited images of the upper abdomen are unremarkable. There is dense airspace opacity throughout the posterior left upper lobe consistent with acute pneumonia. There are advanced changes of centrilobular emphysema. IMPRESSION: Dense left upper lobe airspace opacity consistent with acute pneumonia. Reviewed, Interpreted and Dictated by Rajan Anna MD Transcribed by Reyna Martinez Authenticated and [facility]
[2023-08-11 12:09] LABS: Platelet Estimate Marked Increase; Stomatocytes 2+
[2023-08-11 12:10] LABS: Polychromasia 1+
--- NOTE | 2023-08-11 12:12 | PC.NURSE ---
call made to care management for bed placement
[2023-08-11 12:14] LABS: Lactic Acid 1.6 mmol/L (0.7-2.1)
--- NOTE | 2023-08-11 13:55 | PC.NURSE ---
report called to Denise BERTRAND
--- NOTE | 2023-08-11 14:53 | EXP.PULM.CON ---
History of Present Illness History of present illness: Ms. Skaggs is a 52-year-old female current smoker greater than [id number] smoker is not in any baseline inhaler therapy or oxygen at home, history of breast cancer 15 years ago presented to hospital worsening respiratory distress along with cough and productive phlegm found to be having significant left upper lobe pneumonia and was admitted to the hospital for further evaluation and management. [facility] Disclaimer: The information contained in this section may have been updated after the patient was seen, as this information can be updated by other users. Medical History (Updated 08/11/23 @ 14:56 by Amilcar Mack MD) Breast cancer Family History (Updated 08/11/23 @ 14:46 by Beckie Hutchison RN) Other Family history of cancer No significant family history Social History (Updated 08/11/23 @ 14:47 by Beckie Hutchison RN) Smoking Status: Current every day smoker alcohol intake: current current occupational status: other Travel in the last 8 weeks: None Review of Systems Constitutional Constitutional: Reports anorexia, Reports body ache(s) and Reports fatigue Eyes Eyes: Denies eye discharge, Denies dry eyes, Denies irritation and Denies itchy eyes ENT Ears, Nose, Mouth, and Throat: Denies epistaxis, Denies facial pain, Denies lip swelling and Denies throat swelling *Cardiovascular Cardiovascular: Reports dyspnea and Reports dyspnea on exertion *Respiratory Respiratory: Reports chest congestion, Reports cough, Reports dyspnea, Reports dyspnea on exertion, Reports excessive phlegm production, Denies hemoptysis, Denies pain on inspiration, Denies pain with cough and Reports wheezing *Gastrointestinal Gastrointestinal: Denies abdominal pain, Denies belching and Denies cramping *Musculoskeletal Musculoskeletal: Reports back pain, Reports myalgias and Reports other (No small joint swelling or Pain) Psychiatric Psychiatric: Denies homicidal ideation and Denies suicidal ideation Endocrine Endocrine: Reports fatigue and Denies heat intolerance Hematologic/Lymphatic Hematologic/Lymphatic: Denies easy bleeding and Denies lymphadenopathy Allergic/Immunologic Allergic/Immunologic: Denies itchy eyes, Denies lip swelling, Denies throat swelling and Reports wheezing Pulmonology Exam Inpatient Vital signs and Labs for Last 24 Hours: Temp Pulse Resp BP Pulse Ox O2 Del Method 98.0 F 105 H 18 95/54 L 98 Room Air 08/11/23 14:08 08/11/23 14:08 08/11/23 14:08 08/11/23 14:08 08/11/23 14:08 08/11/23 14:08 Laboratory Results - last 24 hr 08/11/23 10:55: WBC 26.4 H*, RBC 3.84 L, Hgb 14.0, Hct 41.4, MCV 107.8 H, MCH 36.4 H, MCHC 33.8, RDW 13.0, Plt Count 679 H, MPV 8.2, Neut % (Auto) 87.8 H, Lymph % (Auto) 3.5 L, [place] % (Auto) 8.3, Eos % (Auto) 0.2, Baso % (Auto) 0.2, Neut # (Auto) 23.2 H, Lymph # (Auto) 0.9, [place] # (Auto) 2.2 H, Eos # (Auto) 0.1, Baso # (Auto) 0.1, Total Counted 100, Neutrophils % (Manual) 86 H, Band Neutrophils % 1.0, Lymphocytes % (Manual) 6 L, Monocytes % (Manual) 7, Platelet Estimate Marked increase, RBC Morphology Not Reportable, Polychromasia 1+, Stomatocytes 2+, Sodium 123 L, Potassium 3.4 L, Chloride 85 L, Carbon Dioxide 29, Anion Gap 12.4, BUN 20 H, Creatinine 0.90, Estimated Creat Clear 39, Estimated GFR 66, Est GFR ( Amer) 80, Glucose 119 H, Calcium 8.3 L, Total Bilirubin 0.8, AST 108 H, ALT 36, Alkaline Phosphatase 136 H, Total Protein 7.6, Albumin 3.7, Globulin 3.9 H, Albumin/Globulin Ratio 0.9 L 08/11/23 11:54: SARS-CoV-2 (PCR) Not detected, Influenza A Untype (PCR) Not detected, Influenza Type B (PCR) Not detected 08/11/23 11:56: Lactate 1.6 I & O for Labs for Last 24 Hours: Intake & Output 08/08/23 08/09/23 08/10/23 08/11/23 23:59 23:59 23:59 23:59 Weight 75 lb 5 oz Constitutional: Present moderate distress Head: Present normocephalic and atraumatic ENT: Present normal exam, normal oropharynx and mucous membranes moist Ne
[2023-08-11 17:02] LABS: Procalcitonin 2.71 ng/mL (0.0-2.0)
--- NOTE | 2023-08-11 18:09 | EXP.HP ---
History of Present Illness *Admission Date: 08/11/23 *Reason for visit:: Cough *History of present illness: Patient is a 52-year-old female with past medical history of COPD, tobacco use who presented to hospital for fever chills cough body aches nausea vomiting and decreased appetite. Patient has productive cough. On further evaluation patient was noticed to have upper lobe pneumonia. [facility] Disclaimer: The information contained in this section may have been updated after the patient was seen, as this information can be updated by other users. Medical History (Updated 08/11/23 @ 18:10 by Anna Marie Villa MD) Breast cancer Family History (Updated 08/11/23 @ 14:46 by Beckie Hutchison, RN) Other Family history of cancer No significant family history Social History (Updated 08/11/23 @ 14:47 by Beckie Hutchison, ELZA) Smoking Status: Current every day smoker alcohol intake: current current occupational status: other Travel in the last 8 weeks: None Review of Systems Review of Systems Review of systems (narrative): as per HPI Meds Home Medications and Allergies Home Medications Medication Instructions Recorded Confirmed Type No Known Home Medications 08/11/23 08/11/23 History New Prescriptions to Start Prescriptions: Allergies Allergy/AdvReac Type Severity Reaction Status Date / Time penicillin G Allergy Severe Hives Verified 08/11/23 11:43 Exam Data for Last 24 hours Vital signs and Labs for Last 24 Hours: Temp Pulse Resp BP Pulse Ox O2 Del Method 97.9 F 97 H 16 104/52 L 98 Room Air 08/11/23 15:41 08/11/23 15:41 08/11/23 15:41 08/11/23 15:41 08/11/23 15:41 08/11/23 17:00 Laboratory Results - last 24 hr 08/11/23 10:55: WBC 26.4 H*, RBC 3.84 L, Hgb 14.0, Hct 41.4, MCV 107.8 H, MCH 36.4 H, MCHC 33.8, RDW 13.0, Plt Count 679 H, MPV 8.2, Neut % (Auto) 87.8 H, Lymph % (Auto) 3.5 L, [place] % (Auto) 8.3, Eos % (Auto) 0.2, Baso % (Auto) 0.2, Neut # (Auto) 23.2 H, Lymph # (Auto) 0.9, [place] # (Auto) 2.2 H, Eos # (Auto) 0.1, Baso # (Auto) 0.1, Total Counted 100, Neutrophils % (Manual) 86 H, Band Neutrophils % 1.0, Lymphocytes % (Manual) 6 L, Monocytes % (Manual) 7, Platelet Estimate Marked increase, RBC Morphology Not Reportable, Polychromasia 1+, Stomatocytes 2+, Sodium 123 L, Potassium 3.4 L, Chloride 85 L, Carbon Dioxide 29, Anion Gap 12.4, BUN 20 H, Creatinine 0.90, Estimated Creat Clear 39, Estimated GFR 66, Est GFR ( Amer) 80, Glucose 119 H, Calcium 8.3 L, Total Bilirubin 0.8, AST 108 H, ALT 36, Alkaline Phosphatase 136 H, Total Protein 7.6, Albumin 3.7, Globulin 3.9 H, Albumin/Globulin Ratio 0.9 L, Procalcitonin 2.71 H 08/11/23 11:54: SARS-CoV-2 (PCR) Not detected, Influenza A Untype (PCR) Not detected, Influenza Type B (PCR) Not detected 08/11/23 11:56: Lactate 1.6 I & O for Last 24 hours: Intake & Output 08/08/23 08/09/23 08/10/23 08/11/23 23:59 23:59 23:59 23:59 Intake Total 200 / 200 Balance 200 / 200 Weight 34.161 kg Constitutional Constitutional: no acute distress *Routine HEENT Exam Head: Present normocephalic Eye: Present EOMI and PERRL ENT: Present mucous membranes moist *Routine Neck Exam Neck: Present supple; Absent lymphadenopathy *Routine Respiratory Exam Respiratory: Present CTA bilaterally *Routine Cardiovascular Exam Cardiovascular: Present RRR *Routine Abdominal Exam Abdominal: Present soft and normoactive bowel sounds; Absent tenderness *Routine Rectal Exam Rectal:: deferred *Routine Genitalia Exam Genitalia:: deferred *Routine Extremities Exam Extremities: Absent cyanosis, clubbing or edema *Routine Skin Exam Skin: Present warm; Absent rash *Routine Neurological Exam Neurological: Present alert and oriented X3 Assessment and Plan *Assessment and plan (1) Pneumonia: Status: Acute Qualifiers: Laterality: left Lung location: upper lobe of lung Pneumonia type: due to unspecified organism Qualifi
[2023-08-12 04:00] VITALS: BP 100/60; PULSE 89; RESP 16; TEMP 36.6; O2SAT 99; BMI 15.2
--- NOTE | 2023-08-12 06:00 | PC.NURSE ---
VSS/AFEBRILE. HAS HAD A QUIET NIGHT. NO COUGHING OR RESP DISTRESS NOTED. TOLERATING IVABs.
[2023-08-12 07:26] LABS: Chloride 91 mmol/L (98-107); Potassium 3.4 mmoL/L (3.5-5.1); Sodium 124 mmol/L (136-145)
[2023-08-12 07:29] LABS: Anion Gap 9.4 mEq/L (5-15); Blood Urea Nitrogen 25 mg/dl (7-17); Carbon Dioxide 27 mmol/L (22.0-30.0); Creatinine Clearance Estimated 53 mL/min (50-200); Estimated Glomerular Filt Rate 88 ml/min (>60); GFR (African American) 107 ML/MIN (>60)
[2023-08-12 07:30] LABS: Basophils % 0.1 % (0.1-2.0); Calcium 7.9 mg/dl (8.4-10.2); Glucose 119 mg/dl (74-100)
[2023-08-12 08:00] VITALS: BP 98/58; PULSE 94; RESP 18; TEMP 36.5; O2SAT 96
[2023-08-12 08:01] LABS: Hematocrit 34.7 % (37.0-47.0); Hemoglobin 11.5 g/dL (12.2-16.2); Lymphocytes # 1.1 K/mm3 (0.7-4.5); Mean Corpuscular HGB Conc 33.1 g/dL (31.8-35.4); Mean Corpuscular Hemoglobin 35.4 pg (27.0-31.2); Mean Corpuscular Volume 106.8 fl (81-99); Mean Platelet Volume 8.2 fl (7.4-10.4); Monocytes % 3.8 % (1.7-9.3); Neutrophils % 92.1 % (37.0-80.0); Platelet Count 623 K/mm3 (142-424); Red Blood Count 3.25 M/mm3 (4.20-5.40); Red Cell Distribution Width 12.7 % (11.5-17.5); White Blood Count 27.1 K/mm3 (4.8-10.8)
[2023-08-12 08:03] LABS: MANUAL DIFFERENTIAL MANUAL DIFFERENTIAL (MANUAL DIFF)
[2023-08-12 08:19] LABS: Anisocytosis 1+; Lymphocytes % 2 % (10-50); Macrocytosis 1+; Monocytes % 2 % (2-9); Neutrophils % 96 % (42-76); Total Cells Counted 100
[2023-08-12 08:20] LABS: Platelet Estimate Moderate Increase
--- NOTE | 2023-08-12 09:52 | EXP.PULM.PN ---
Subjective *Date: 08/12/23 *Time: 12:04 Interval history: No acute respiratory events overnight. Patient admits continued improvement in her respiratory symptoms. Pulmonology Exam Inpatient Vital signs and Labs for Last 24 Hours: Temp Pulse Resp BP Pulse Ox O2 Del Method 97.9 F 89 16 100/60 L 99 Room Air 08/12/23 04:00 08/12/23 04:00 08/12/23 04:00 08/12/23 04:00 08/12/23 04:00 08/12/23 08:00 Laboratory Results - last 24 hr 08/11/23 10:55: WBC 26.4 H*, RBC 3.84 L, Hgb 14.0, Hct 41.4, MCV 107.8 H, MCH 36.4 H, MCHC 33.8, RDW 13.0, Plt Count 679 H, MPV 8.2, Neut % (Auto) 87.8 H, Lymph % (Auto) 3.5 L, [place] % (Auto) 8.3, Eos % (Auto) 0.2, Baso % (Auto) 0.2, Neut # (Auto) 23.2 H, Lymph # (Auto) 0.9, [place] # (Auto) 2.2 H, Eos # (Auto) 0.1, Baso # (Auto) 0.1, Total Counted 100, Neutrophils % (Manual) 86 H, Band Neutrophils % 1.0, Lymphocytes % (Manual) 6 L, Monocytes % (Manual) 7, Platelet Estimate Marked increase, RBC Morphology Not Reportable, Polychromasia 1+, Stomatocytes 2+, Sodium 123 L, Potassium 3.4 L, Chloride 85 L, Carbon Dioxide 29, Anion Gap 12.4, BUN 20 H, Creatinine 0.90, Estimated Creat Clear 39, Estimated GFR 66, Est GFR ( Amer) 80, Glucose 119 H, Calcium 8.3 L, Total Bilirubin 0.8, AST 108 H, ALT 36, Alkaline Phosphatase 136 H, Total Protein 7.6, Albumin 3.7, Globulin 3.9 H, Albumin/Globulin Ratio 0.9 L, Procalcitonin 2.71 H 08/11/23 11:54: SARS-CoV-2 (PCR) Not detected, Influenza A Untype (PCR) Not detected, Influenza Type B (PCR) Not detected 08/11/23 11:56: Lactate 1.6 08/12/23 06:53: WBC 27.1 H*, RBC 3.25 L, Hgb 11.5 L D, Hct 34.7 L, MCV 106.8 H, MCH 35.4 H, MCHC 33.1, RDW 12.7, Plt Count 623 H, MPV 8.2, Neut % (Auto) 92.1 H, Lymph % (Auto) 4.0 L, [place] % (Auto) 3.8, Eos % (Auto) 0.0 L, Baso % (Auto) 0.1, Neut # (Auto) 25.0 H, Lymph # (Auto) 1.1, [place] # (Auto) 1.0, Eos # (Auto) 0.0, Baso # (Auto) 0.0, Total Counted 100, Neutrophils % (Manual) 96 H, Lymphocytes % (Manual) 2 L, Monocytes % (Manual) 2, Platelet Estimate Moderate increase, Anisocytosis 1+, Macrocytosis 1+, Sodium 124 L, Potassium 3.4 L, Chloride 91 L, Carbon Dioxide 27, Anion Gap 9.4, BUN 25 H, Creatinine 0.70 D, Estimated Creat Clear 53, Estimated GFR 88, Est GFR ( Amer) 107 D, Glucose 119 H, Calcium 7.9 L I & O for Labs for Last 24 Hours: Intake & Output 08/09/23 08/10/23 08/11/23 08/12/23 23:59 23:59 23:59 23:59 Intake Total 910 / 910 340 / 340 Balance 910 / 910 340 / 340 Weight 75 lb 5 oz 77 lb 6.4 oz Constitutional: Present moderate distress Head: Present normocephalic and atraumatic ENT: Present normal exam, normal oropharynx and mucous membranes moist Neck: Present normal inspection and full ROM Respiratory: Present rhonchi, diminished air movement, normal respiratory effort and able to speak in complete sentences; Absent prolonged expiratory phase, wheezes or crackles Cardiac: Present S1/S2, Tachycardia and radial pulses present GI: Present soft and distention; Absent tenderness or guarding Rectal (female): Present deferred (female): Present deferred Skin: Present intact; Absent cyanosis or jaundice Neuro: Present alert, awake and oriented x 3 Extremities: Present normal inspection; Absent clubbing or cyanosis Psychiatric: Present normal affect and cooperative Assessment and Plan *Assessment and plan (1) Pneumonia: Status: Acute Qualifiers: Laterality: left Lung location: upper lobe of lung Pneumonia type: due to unspecified organism Qualified Code(s): J18.9 - Pneumonia, unspecified organism Category: Medical Code(s): J18.9 - Pneumonia, unspecified organism Plan Ms. Skaggs is a 52-year-old female current smoker greater than [id number] smoker is not in any baseline inhaler therapy or oxygen at home, history of breast cancer 15 years ago presented to hospital worsening respiratory distress along with cough and productive phlegm found to be having significant left upper lobe pneumonia
[2023-08-12 14:07] VITALS: BMI 15.1
[2023-08-12 16:00] VITALS: BP 99/52; PULSE 91; RESP 18; TEMP 36.5; O2SAT 97
--- NOTE | 2023-08-12 16:05 | PC.NURSE ---
New IV #20 RAC placed. ABX infusing at this time. Pt has ambulated to BR and sat up in the chair this shift. Lungs are diminished t/o. Remains on RA. Has c/o some discomfort to her stomach after eating lunch. No other complaints stated. Sputum collected. Still need Urine collected. Call light within reach.
--- NOTE | 2023-08-12 17:06 | EXP.PN ---
Subjective *Date: 08/12/23 *Time: 17:11 Interval history: patient was seen and evaluated at the bedside. denies chest pain, shortness of breath, nausea, vomiting, abdominal pain. Patient does not have any complaints at this time. feels better overall Exam Data for Last 24 hours Vital signs and Labs for Last 24 Hours: Temp Pulse Resp BP Pulse Ox O2 Del Method 97.7 F 91 H 18 99/52 L 97 Room Air 08/12/23 16:00 08/12/23 16:00 08/12/23 16:00 08/12/23 16:00 08/12/23 16:00 08/12/23 17:00 Laboratory Results - last 24 hr 08/11/23 10:55: Procalcitonin 2.71 H 08/12/23 06:53: WBC 27.1 H*, RBC 3.25 L, Hgb 11.5 L D, Hct 34.7 L, MCV 106.8 H, MCH 35.4 H, MCHC 33.1, RDW 12.7, Plt Count 623 H, MPV 8.2, Neut % (Auto) 92.1 H, Lymph % (Auto) 4.0 L, [place] % (Auto) 3.8, Eos % (Auto) 0.0 L, Baso % (Auto) 0.1, Neut # (Auto) 25.0 H, Lymph # (Auto) 1.1, [place] # (Auto) 1.0, Eos # (Auto) 0.0, Baso # (Auto) 0.0, Total Counted 100, Neutrophils % (Manual) 96 H, Lymphocytes % (Manual) 2 L, Monocytes % (Manual) 2, Platelet Estimate Moderate increase, Anisocytosis 1+, Macrocytosis 1+, Sodium 124 L, Potassium 3.4 L, Chloride 91 L, Carbon Dioxide 27, Anion Gap 9.4, BUN 25 H, Creatinine 0.70 D, Estimated Creat Clear 53, Estimated GFR 88, Est GFR ( Amer) 107 D, Glucose 119 H, Calcium 7.9 L I & O for Last 24 hours: Intake & Output 08/09/23 08/10/23 08/11/23 08/12/23 23:59 23:59 23:59 23:59 Intake Total 910 / 910 760 / 760 Balance 910 / 910 760 / 760 Weight 34.161 kg 35 kg Constitutional Constitutional: no acute distress *Routine HEENT Exam Head: Present normocephalic Eye: Present EOMI and PERRL ENT: Present mucous membranes moist *Routine Neck Exam Neck: Present supple; Absent lymphadenopathy *Routine Respiratory Exam Respiratory: Present CTA bilaterally *Routine Cardiovascular Exam Cardiovascular: Present RRR *Routine Abdominal Exam Abdominal: Present soft and normoactive bowel sounds; Absent tenderness *Routine Extremities Exam Extremities: Absent cyanosis, clubbing or edema *Routine Skin Exam Skin: Present warm; Absent rash *Routine Neurological Exam Neurological: Present alert and oriented X3 Assessment and Plan *Assessment and plan (1) Pneumonia: Status: Acute Qualifiers: Laterality: left Lung location: upper lobe of lung Pneumonia type: due to unspecified organism Qualified Code(s): J18.9 - Pneumonia, unspecified organism Category: Medical Code(s): J18.9 - Pneumonia, unspecified organism (2) Hyponatremia: Status: Acute Category: Medical Code(s): E87.1 - Hypo-osmolality and hyponatremia (3) Leukocytosis: Status: Acute Category: Medical Code(s): D72.829 - Elevated white blood cell count, unspecified Plan Patient is a 52-year-old female with past medical history of COPD, tobacco use who presented to hospital for fever chills cough body aches nausea vomiting and decreased appetite. Patient has productive cough. On further evaluation patient was noticed to have upper lobe pneumonia. Assessment Pneumonia leukocytosis Thrombocytosis hyponatremia hypokalemia Plan Continue cefepime, azithromycin, vancomycin CT chest reviewed?show left upper lobe dense opacity consistent with acute pneumonia pulmonary consulted and following Check blood cultures Procalcitonin is elevated Monitor and replace electrolytes DVT prophylaxis-on Lovenox
[2023-08-12 20:00] VITALS: BP 105/70; PULSE 106; RESP 17; TEMP 37.2; O2SAT 97; O2SAT 98
[2023-08-13 02:34] VITALS: PULSE 96
[2023-08-13 04:00] VITALS: BP 89/56; PULSE 106; RESP 17; TEMP 36.8; O2SAT 94; BMI 16.2
--- NOTE | 2023-08-13 04:27 | PC.NURSE ---
CONTINUES TO HAVE A DRY COUGH. REPORTS DUONEB HELPED. NO C/O SOA. REPORTS A MILD H/A EARLIER IN THE SHIFT. RECEIVED TYLENOL 650MG PO AND WAS EFFECTIVE.
[2023-08-13 07:22] LABS: Chloride 100 mmol/L (98-107); Potassium 3.6 mmoL/L (3.5-5.1); Sodium 127 mmol/L (136-145)
[2023-08-13 07:25] LABS: Anion Gap 5.6 mEq/L (5-15); Blood Urea Nitrogen 14 mg/dl (7-17); Carbon Dioxide 25 mmol/L (22.0-30.0); Creatinine Clearance Estimated 79 mL/min (50-200); Estimated Glomerular Filt Rate 130 ml/min (>60); GFR (African American) 157 ML/MIN (>60)
[2023-08-13 07:26] LABS: Calcium 7.4 mg/dl (8.4-10.2); Glucose 101 mg/dl (74-100)
[2023-08-13 07:44] LABS: Basophils % 0.2 % (0.1-2.0); Hematocrit 30.8 % (37.0-47.0); Lymphocytes # 0.9 K/mm3 (0.7-4.5); Lymphocytes % 4.1 % (10-50); Mean Corpuscular HGB Conc 33.6 g/dL (31.8-35.4); Mean Corpuscular Hemoglobin 35.6 pg (27.0-31.2); Mean Corpuscular Volume 106.1 fl (81-99); Mean Platelet Volume 8.1 fl (7.4-10.4); Monocytes % 4.6 % (1.7-9.3); Neutrophils # 19.5 K/mm3 (1.8-7.8); Neutrophils % 91.1 % (37.0-80.0); Platelet Count 662 K/mm3 (142-424); White Blood Count 21.4 K/mm3 (4.8-10.8)
[2023-08-13 07:45] VITALS: BP 90/46; PULSE 101; RESP 18; TEMP 36.7; O2SAT 95
[2023-08-13 07:47] LABS: MANUAL DIFFERENTIAL MANUAL DIFFERENTIAL (MANUAL DIFF)
[2023-08-13 08:59] LABS: Lymphocytes % 7 % (10-50); Monocytes % 6 % (2-9); Neutrophils % 87 % (42-76); Total Cells Counted 100
[2023-08-13 09:11] LABS: Anisocytosis 1+; Macrocytosis 1+; Platelet Estimate Moderate Increase
[2023-08-13 09:13] LABS: Hemoglobin 10.3 g/dL (12.2-16.2)
[2023-08-13 12:26] LABS: Peripheral Smear Review Scanned Result
[2023-08-13 15:37] VITALS: BP 98/59; PULSE 112; RESP 16; TEMP 37.7; O2SAT 97
--- NOTE | 2023-08-13 16:03 | EXP.PN ---
Subjective *Date: 08/13/23 *Time: 16:03 Interval history: patient was seen and evaluated at the bedside. denies chest pain, shortness of breath, nausea, vomiting, abdominal pain. Patient does not have any complaints at this time. feels better overall Exam Data for Last 24 hours Vital signs and Labs for Last 24 Hours: Temp Pulse Resp BP Pulse Ox O2 Del Method 100 F H 112 H 16 98/59 L 97 Room Air 08/13/23 15:37 08/13/23 15:37 08/13/23 15:37 08/13/23 15:37 08/13/23 15:37 08/13/23 15:37 Laboratory Results - last 24 hr 08/13/23 06:45: WBC 21.4 H*, RBC 2.90 L, Hgb 10.3 L D, Hct 30.8 L, MCV 106.1 H, MCH 35.6 H, MCHC 33.6, RDW 13.0, Plt Count 662 H, MPV 8.1, Neut % (Auto) 91.1 H, Lymph % (Auto) 4.1 L, [place] % (Auto) 4.6, Eos % (Auto) 0.0 L, Baso % (Auto) 0.2, Neut # (Auto) 19.5 H, Lymph # (Auto) 0.9, [place] # (Auto) 1.0, Eos # (Auto) 0.0, Baso # (Auto) 0.0, Total Counted 100, Neutrophils % (Manual) 87 H, Lymphocytes % (Manual) 7 L, Monocytes % (Manual) 6, Platelet Estimate Moderate increase, Anisocytosis 1+, Macrocytosis 1+, Sodium 127 L, Potassium 3.6, Chloride 100, Carbon Dioxide 25, Anion Gap 5.6, BUN 14 D, Creatinine 0.50 L D, Estimated Creat Clear 79, Estimated GFR 130, Est GFR ( Amer) 157 D, Glucose 101 H, Calcium 7.4 L I & O for Last 24 hours: Intake & Output 08/10/23 08/11/23 08/12/23 08/13/23 23:59 23:59 23:59 23:59 Intake Total 910 / 910 2634 / 2634 1300 / 1300 Output Total 650 / 650 Balance 910 / 910 2633 / 2133 650 / 650 Weight 34.161 kg 35 kg 37.648 kg Constitutional Constitutional: no acute distress *Routine HEENT Exam Head: Present normocephalic Eye: Present EOMI and PERRL ENT: Present mucous membranes moist *Routine Neck Exam Neck: Present supple; Absent lymphadenopathy *Routine Respiratory Exam Respiratory: Present CTA bilaterally *Routine Cardiovascular Exam Cardiovascular: Present RRR *Routine Abdominal Exam Abdominal: Present soft and normoactive bowel sounds; Absent tenderness *Routine Extremities Exam Extremities: Absent cyanosis, clubbing or edema *Routine Skin Exam Skin: Present warm; Absent rash *Routine Neurological Exam Neurological: Present alert and oriented X3 Assessment and Plan *Assessment and plan (1) Pneumonia: Status: Acute Qualifiers: Laterality: left Lung location: upper lobe of lung Pneumonia type: due to unspecified organism Qualified Code(s): J18.9 - Pneumonia, unspecified organism Category: Medical Code(s): J18.9 - Pneumonia, unspecified organism (2) Hyponatremia: Status: Acute Category: Medical Code(s): E87.1 - Hypo-osmolality and hyponatremia (3) Leukocytosis: Status: Acute Category: Medical Code(s): D72.829 - Elevated white blood cell count, unspecified Plan Patient is a 52-year-old female with past medical history of COPD, tobacco use who presented to hospital for fever chills cough body aches nausea vomiting and decreased appetite. Patient has productive cough. On further evaluation patient was noticed to have upper lobe pneumonia. Assessment Pneumonia leukocytosis Thrombocytosis hyponatremia hypokalemia Plan Continue cefepime, azithromycin, vancomycin CT chest reviewed?show left upper lobe dense opacity consistent with acute pneumonia pulmonary consulted and following Check blood cultures Procalcitonin is elevated Monitor and replace electrolytes DVT prophylaxis-on Lovenox continue IV abx
[2023-08-13 20:00] VITALS: BP 93/57; PULSE 114; RESP 17; TEMP 37.4; O2SAT 94
[2023-08-13 21:00] LABS: Vancomycin,Trough < 5.0 ug/mL (5.0-10.0)
[2023-08-14 01:44] LABS: Vancomycin,Peak 19.5 ug/ml (11-39)
[2023-08-14 04:00] VITALS: BP 92/57; PULSE 113; RESP 17; TEMP 37; O2SAT 96; BMI 16.4
[2023-08-14 07:35] VITALS: BP 86/45; PULSE 116; RESP 18; TEMP 37.1; O2SAT 94
[2023-08-14 08:08] LABS: Basophils % 0.1 % (0.1-2.0); Hematocrit 33.3 % (37.0-47.0); Hemoglobin 10.7 g/dL (12.2-16.2); Lymphocytes # 1.1 K/mm3 (0.7-4.5); Lymphocytes % 5.8 % (10-50); Mean Corpuscular HGB Conc 32.2 g/dL (31.8-35.4); Mean Corpuscular Hemoglobin 34.7 pg (27.0-31.2); Mean Corpuscular Volume 107.8 fl (81-99); Mean Platelet Volume 8.3 fl (7.4-10.4); Monocytes % 5.3 % (1.7-9.3); Neutrophils # 16.8 K/mm3 (1.8-7.8); Neutrophils % 88.7 % (37.0-80.0); Platelet Count 686 K/mm3 (142-424); Red Blood Count 3.09 M/mm3 (4.20-5.40)
[2023-08-14 08:10] LABS: MANUAL DIFFERENTIAL MANUAL DIFFERENTIAL (MANUAL DIFF)
[2023-08-14 08:15] LABS: Blood Urea Nitrogen 6 mg/dl (7-17); Calcium 7.3 mg/dl (8.4-10.2); Carbon Dioxide 24 mmol/L (22.0-30.0); Chloride 96 mmol/L (98-107); Creatinine Clearance Estimated 66 mL/min (50-200); Estimated Glomerular Filt Rate 105 ml/min (>60); GFR (African American) 128 ML/MIN (>60); Glucose 119 mg/dl (74-100); Sodium 128 mmol/L (136-145)
--- NOTE | 2023-08-14 08:24 | PC.NURSE ---
spoke with MD regarding critical Lab. reordered potassium
[2023-08-14 08:27] LABS: Anion Gap 11.4 mEq/L (5-15); Potassium 3.4 mmoL/L (3.5-5.1)
--- NOTE | 2023-08-14 08:45 | EXP.PHA.CONS ---
Pharmacy Consult Date: 08/14/23 Time: 08:45 Referring provider: DR. WALLACE Reason for Consult:: VANCOMYCIN DOSING AFTER TROUGH/PEAK Allergies Allergy/AdvReac Type Severity Reaction Status Date / Time penicillin G Allergy Severe Hives Verified 08/11/23 11:43 Home Medications Medication Instructions Recorded Confirmed Type No Known Home Medications 08/11/23 08/11/23 History New Prescriptions to Start Prescriptions: Height: 1.52 m Weight: 37.88 kg Laboratory Results:: Laboratory Results - last 24 hr 08/13/23 06:45: Hgb 10.3 L D, Total Counted 100, Neutrophils % (Manual) 87 H, Lymphocytes % (Manual) 7 L, Monocytes % (Manual) 6, Platelet Estimate Moderate increase, Anisocytosis 1+, Macrocytosis 1+ 08/13/23 20:40: Vancomycin Trough < 5.0 L 08/14/23 01:15: Vancomycin Peak 19.5 08/14/23 07:46: WBC 19.0 H, RBC 3.09 L, Hgb 10.7 L, Hct 33.3 L, MCV 107.8 H, MCH 34.7 H, MCHC 32.2, RDW 13.0, Plt Count 686 H, MPV 8.3, Neut % (Auto) 88.7 H, Lymph % (Auto) 5.8 L, [place] % (Auto) 5.3, Eos % (Auto) 0.0 L, Baso % (Auto) 0.1, Neut # (Auto) 16.8 H, Lymph # (Auto) 1.1, [place] # (Auto) 1.0, Eos # (Auto) 0.0, Baso # (Auto) 0.0, Sodium 128 L, Potassium 3.4 L, Chloride 96 L, Carbon Dioxide 24, Anion Gap 11.4, BUN 6 L D, Creatinine 0.60, Estimated Creat Clear 66, Estimated GFR 105, Est GFR ( Amer) 128, Glucose 119 H, Calcium 7.3 L Medical History: Medical History (Updated 08/11/23 @ 18:10 by Anna Marie Villa MD) Breast cancer Assessment and Plan Assessment and plan all Dx Assessment and Plan for all problems:: Pharmacokinetic dosing service Objective: Patient: Floor: Age: 52 yo Serum creatinine: 0.50 mg/dL Height: 59.8 Inches Weight (kg): 37.8 Assessment: IBW (kg): 45.35 Dosing wt(kg): 37.8 Estimated Creatinine clearance (ml/min): 79.4 CRCL method: Cockcroft and Gault using ibw(default). Drug selected: Vancomycin Loading dose (mg): Vd (liters): 26.5 (factor used: 0.7 L/kg) Benjamin (hr-1): 0.070 Half life (hrs): 9.90 CLvanco=?? 1.855 L/hr Recommended dose: 750 mg Interval: 18 hrs Infusion time (hrs): 2.0 Predicted peak (mcg/mL): 36.9 Predicted trough (mcg/mL): 12.04 Total body weight is being used for vancomycin dosing. Recommendations: Give Vancomycin 750 mg q 18 hrs with an expected Cpeak of 36.9 mcg/ml and an expected Ctrough of 12.04 mcg/ml AUC 0-24 /CRISTOPHER Data: CRISTOPHER 0.5 mcg/mL:?? AUC/CRISTOPHER:? 1078.2 CRISTOPHER 1.0 mcg/mL:?? AUC/CRISTOPHER:? 539.1 --------- CRISTOPHER 1.5 mcg/mL:?? AUC/CRISTOPHER:? 359.4 CRISTOPHER 2.0 mcg/mL:?? AUC/CRISTOPHER:? 269.5 Thank you for the consult, will continue to follow. -VASYL PARADA, NOELLED
[2023-08-14 09:01] LABS: Lymphocytes % 7 % (10-50); Monocytes % 3 % (2-9); Neutrophils % 90 % (42-76); Nucleated Red Blood Cells 1; Total Cells Counted 100
[2023-08-14 09:02] LABS: Anisocytosis 1+; Macrocytosis 1+; Platelet Estimate Moderate Increase
--- NOTE | 2023-08-14 10:58 | EXP.PHA.PN ---
Subjective *Date: 08/14/23 *Time: 10:58 Medical Exam Vital signs and Labs for Last 24 Hours: Vital Signs Temp Pulse Resp BP Pulse Ox O2 Del Method 08/14/23 09:00 Room Air 08/14/23 08:00 Room Air 08/14/23 07:00 Room Air 08/14/23 07:35 98.8 F 116 H 18 86/45 L 94 L Room Air 08/14/23 05:00 Room Air 08/14/23 04:00 98.6 F 113 H 17 92/57 L 96 Room Air 08/14/23 03:00 Room Air 08/14/23 01:00 Room Air 08/13/23 23:00 Room Air 08/13/23 21:00 Room Air 08/13/23 20:00 Room Air 08/13/23 20:00 99.4 F 114 H 17 93/57 L 94 L Room Air 08/13/23 19:05 Room Air 08/13/23 17:00 Room Air 08/13/23 15:00 Room Air 08/13/23 15:37 100 F H 112 H 16 98/59 L 97 Room Air 08/13/23 13:00 Room Air 08/13/23 11:00 Room Air Intake and Output 08/13/23 08/14/23 08/14/23 23:59 07:59 15:59 Intake Total 50 / 1590 390 / 390 Output Total 800 / 1450 0 / 0 Balance -750 / 140 390 / 390 Intake: Intake, Oral Amount 50 / 680 390 / 390 Output: Output, Urine Amount 800 / 1450 0 / 0 Other: Number of Unmeasured Voids 1 1 Number of Bowel Movements 1 Weight 37.88 kg 37.88 kg Patient Weight 08/14/23 23:59 Weight 37.88 kg Laboratory Results - last 24 hr 08/13/23 20:40: Vancomycin Trough < 5.0 L 08/14/23 01:15: Vancomycin Peak 19.5 08/14/23 07:46: WBC 19.0 H, RBC 3.09 L, Hgb 10.7 L, Hct 33.3 L, MCV 107.8 H, MCH 34.7 H, MCHC 32.2, RDW 13.0, Plt Count 686 H, MPV 8.3, Neut % (Auto) 88.7 H, Lymph % (Auto) 5.8 L, [place] % (Auto) 5.3, Eos % (Auto) 0.0 L, Baso % (Auto) 0.1, Neut # (Auto) 16.8 H, Lymph # (Auto) 1.1, [place] # (Auto) 1.0, Eos # (Auto) 0.0, Baso # (Auto) 0.0, Total Counted 100, Neutrophils % (Manual) 90 H, Lymphocytes % (Manual) 7 L, Monocytes % (Manual) 3, Nucleated RBCs 1, Platelet Estimate Moderate increase, Anisocytosis 1+, Macrocytosis 1+, Sodium 128 L, Potassium 3.4 L, Chloride 96 L, Carbon Dioxide 24, Anion Gap 11.4, BUN 6 L D, Creatinine 0.60, Estimated Creat Clear 66, Estimated GFR 105, Est GFR ( Amer) 128, Glucose 119 H, Calcium 7.3 L I & O for Labs for Last 24 Hours: Intake & Output 08/11/23 08/12/23 08/13/23 08/14/23 23:59 23:59 23:59 23:59 Intake Total 910 / 910 2634 / 2634 1350 / 1590 390 / 390 Output Total 501 1450 / 1450 0 / 0 Balance 910 / 910 2633 / 2133 -100 / 140 390 / 390 Weight 34.161 kg 35 kg 37.648 kg 37.88 kg The patient's infection will respond to the chosen ABx?: Yes Is the patient receiving the right drug, dose, and route?: Yes Could a more targeted ABx be ordered?: No
--- NOTE | 2023-08-14 15:27 | EXP.PN ---
Subjective *Date: 08/14/23 *Time: 15:27 Interval history: patient was seen and evaluated at the bedside. cough is better, denies chest pain, shortness of breath, nausea, vomiting, abdominal pain. Patient does not have any complaints at this time. feels better overall Exam Data for Last 24 hours Vital signs and Labs for Last 24 Hours: Temp Pulse Resp BP Pulse Ox O2 Del Method 98.8 F 116 H 18 86/45 L 94 L Room Air 08/14/23 07:35 08/14/23 07:35 08/14/23 07:35 08/14/23 07:35 08/14/23 07:35 08/14/23 13:00 Laboratory Results - last 24 hr 08/13/23 20:40: Vancomycin Trough < 5.0 L 08/14/23 01:15: Vancomycin Peak 19.5 08/14/23 07:46: WBC 19.0 H, RBC 3.09 L, Hgb 10.7 L, Hct 33.3 L, MCV 107.8 H, MCH 34.7 H, MCHC 32.2, RDW 13.0, Plt Count 686 H, MPV 8.3, Neut % (Auto) 88.7 H, Lymph % (Auto) 5.8 L, [place] % (Auto) 5.3, Eos % (Auto) 0.0 L, Baso % (Auto) 0.1, Neut # (Auto) 16.8 H, Lymph # (Auto) 1.1, [place] # (Auto) 1.0, Eos # (Auto) 0.0, Baso # (Auto) 0.0, Total Counted 100, Neutrophils % (Manual) 90 H, Lymphocytes % (Manual) 7 L, Monocytes % (Manual) 3, Nucleated RBCs 1, Platelet Estimate Moderate increase, Anisocytosis 1+, Macrocytosis 1+, Sodium 128 L, Potassium 3.4 L, Chloride 96 L, Carbon Dioxide 24, Anion Gap 11.4, BUN 6 L D, Creatinine 0.60, Estimated Creat Clear 66, Estimated GFR 105, Est GFR ( Amer) 128, Glucose 119 H, Calcium 7.3 L I & O for Last 24 hours: Intake & Output 08/11/23 08/12/23 08/13/23 08/14/23 23:59 23:59 23:59 23:59 Intake Total 910 / 910 2634 / 2634 1350 / 1590 440 / 440 Output Total 501 1450 / 1450 100 / 100 Balance 910 / 910 2633 / 2133 -100 / 140 340 / 340 Weight 34.161 kg 35 kg 37.648 kg 37.88 kg Microbiology Reports for the Last 24 Hours: Microbiology 08/11/23 11:44 Blood Blood Culture - Preliminary 08/11/23 11:05 Blood Blood Culture - Preliminary 08/11/23 14:55 Nose - Nasal MRSA Culture - Final Constitutional Constitutional: no acute distress *Routine HEENT Exam Head: Present normocephalic Eye: Present EOMI and PERRL ENT: Present mucous membranes moist *Routine Neck Exam Neck: Present supple; Absent lymphadenopathy *Routine Respiratory Exam Respiratory: Present CTA bilaterally *Routine Cardiovascular Exam Cardiovascular: Present RRR *Routine Abdominal Exam Abdominal: Present soft and normoactive bowel sounds; Absent tenderness *Routine Extremities Exam Extremities: Absent cyanosis, clubbing or edema *Routine Skin Exam Skin: Present warm; Absent rash *Routine Neurological Exam Neurological: Present alert and oriented X3 Assessment and Plan *Assessment and plan (1) Pneumonia: Status: Acute Qualifiers: Laterality: left Lung location: upper lobe of lung Pneumonia type: due to unspecified organism Qualified Code(s): J18.9 - Pneumonia, unspecified organism Category: Medical Code(s): J18.9 - Pneumonia, unspecified organism (2) Hyponatremia: Status: Acute Category: Medical Code(s): E87.1 - Hypo-osmolality and hyponatremia (3) Leukocytosis: Status: Acute Category: Medical Code(s): D72.829 - Elevated white blood cell count, unspecified Plan Patient is a 52-year-old female with past medical history of COPD, tobacco use who presented to hospital for fever chills cough body aches nausea vomiting and decreased appetite. Patient has productive cough. On further evaluation patient was noticed to have upper lobe pneumonia. Assessment Pneumonia leukocytosis Thrombocytosis hyponatremia hypokalemia Plan Continue cefepime, azithromycin, vancomycin CT chest reviewed?show left upper lobe dense opacity consistent with acute pneumonia pulmonary consulted and following Check blood cultures - NGTD MRSA nasal swab negative Procalcitonin is elevated Monitor and replace electrolytes DVT prophylaxis-on Lovenox pulmonary recommends to continue IV abx and wait sputum cultures
[2023-08-14 16:00] VITALS: BP 92/56; PULSE 106; RESP 18; TEMP 37.2; O2SAT 97
[2023-08-14 20:00] VITALS: BP 97/62; PULSE 99; RESP 17; TEMP 36.9; O2SAT 98
[2023-08-15 04:00] VITALS: BP 109/65; PULSE 108; RESP 17; TEMP 37.2; O2SAT 97; BMI 16.7
--- NOTE | 2023-08-15 04:29 | PC.NURSE ---
Pt is alert and oriented x4. Pt denies pain and has tolerated antibiotic therapy well. 18g IV placed in right forearm. 20g in left wrist slow to flush but still draws blood. Pt denies needs at this time.
[2023-08-15 07:14] LABS: Basophils % 0.1 % (0.1-2.0); Hematocrit 31.2 % (37.0-47.0); Hemoglobin 10.3 g/dL (12.2-16.2); Lymphocytes # 1.1 K/mm3 (0.7-4.5); Lymphocytes % 5.9 % (10-50); Mean Corpuscular HGB Conc 32.8 g/dL (31.8-35.4); Mean Corpuscular Hemoglobin 35.9 pg (27.0-31.2); Mean Corpuscular Volume 109.2 fl (81-99); Mean Platelet Volume 7.8 fl (7.4-10.4); Monocytes # 1.1 K/mm3 (0.1-1.0); Monocytes % 5.6 % (1.7-9.3); Neutrophils # 16.7 K/mm3 (1.8-7.8); Neutrophils % 88.5 % (37.0-80.0); Red Blood Count 2.86 M/mm3 (4.20-5.40); Red Cell Distribution Width 13.1 % (11.5-17.5); White Blood Count 18.9 K/mm3 (4.8-10.8)
[2023-08-15 07:38] LABS: Platelet Count 695 K/mm3 (142-424)
[2023-08-15 07:39] LABS: MANUAL DIFFERENTIAL MANUAL DIFFERENTIAL (MANUAL DIFF)
[2023-08-15 07:45] LABS: Chloride 100 mmol/L (98-107); Sodium 128 mmol/L (136-145)
[2023-08-15 07:48] LABS: Alanine Aminotransferase 21 U/L (12-78); Albumin Level 2.5 g/dl (3.5-5.0); Albumin/Globulin Ratio 0.8 (1.1-1.8); Alkaline Phosphatase 93 U/L (38-126); Aspartate Amino Transferase 42 U/L (14-36); Bilirubin,Total 0.4 mg/dl (0.2-1.3); Blood Urea Nitrogen 6 mg/dl (7-17); Carbon Dioxide 25 mmol/L (22.0-30.0); Creatinine Clearance Estimated 81 mL/min (50-200); Estimated Glomerular Filt Rate 130 ml/min (>60); GFR (African American) 157 ML/MIN (>60); Globulin 3.2 g/dL (1.3-3.2); Total Protein,Serum 5.7 g/dl (6.3-8.2)
[2023-08-15 07:49] LABS: Calcium 7.3 mg/dl (8.4-10.2); Glucose 90 mg/dl (74-100)
[2023-08-15 08:00] VITALS: BP 114/67; PULSE 117; RESP 16; TEMP 37; O2SAT 96
[2023-08-15 09:21] LABS: Lymphocytes % 3 % (10-50); Monocytes % 3 % (2-9); Neutrophils % 93 % (42-76); Platelet Estimate Slight Increase; Polychromasia 1+; Total Cells Counted 100
[2023-08-15 09:22] LABS: Anisocytosis 1+; Macrocytosis 1+
--- NOTE | 2023-08-15 10:15 | EXP.PULM.PN ---
Subjective *Date: 08/15/23 *Time: 11:37 Interval history: No acute respiratory vents overnight. Patient admits stable respiratory symptoms requesting to be discharged home. Pulmonology Exam Inpatient Vital signs and Labs for Last 24 Hours: Temp Pulse Resp BP Pulse Ox O2 Del Method 98.6 F 117 H 16 114/67 96 Room Air 08/15/23 08:00 08/15/23 08:00 08/15/23 08:00 08/15/23 08:00 08/15/23 08:00 08/15/23 08:00 Laboratory Results - last 24 hr 08/15/23 06:43: WBC 18.9 H, RBC 2.86 L, Hgb 10.3 L, Hct 31.2 L, MCV 109.2 H, MCH 35.9 H, MCHC 32.8, RDW 13.1, Plt Count 695 H, MPV 7.8, Neut % (Auto) 88.5 H, Lymph % (Auto) 5.9 L, [place] % (Auto) 5.6, Eos % (Auto) 0.0 L, Baso % (Auto) 0.1, Neut # (Auto) 16.7 H, Lymph # (Auto) 1.1, [place] # (Auto) 1.1 H, Eos # (Auto) 0.0, Baso # (Auto) 0.0, Total Counted 100, Neutrophils % (Manual) 93 H, Band Neutrophils % 1.0, Lymphocytes % (Manual) 3 L, Monocytes % (Manual) 3, Platelet Estimate Slight increase, Polychromasia 1+, Anisocytosis 1+, Macrocytosis 1+, Sodium 128 L, Potassium 3.0 L, Chloride 100, Carbon Dioxide 25, Anion Gap 6.0, BUN 6 L, Creatinine 0.50 L, Estimated Creat Clear 81, Estimated GFR 130, Est GFR ( Amer) 157 D, Glucose 90 D, Calcium 7.3 L, Total Bilirubin 0.4, AST 42 H, ALT 21, Alkaline Phosphatase 93, Total Protein 5.7 L, Albumin 2.5 L, Globulin 3.2, Albumin/Globulin Ratio 0.8 L I & O for Labs for Last 24 Hours: Intake & Output 08/12/23 08/13/23 08/14/23 08/15/23 23:59 23:59 23:59 23:59 Intake Total 2634 / 2634 1350 / 1590 440 / 800 830 / 830 Output Total 501 1450 / 1450 100 / 100 Balance 2633 / 2133 -100 / 140 340 / 700 830 / 830 Weight 77 lb 2.589 oz 83 lb 83 lb 8.178 oz 85 lb 4.8 oz Microbiology Reports for the Last 24 Hours: Microbiology 08/11/23 11:44 Blood Blood Culture - Preliminary 08/11/23 11:05 Blood Blood Culture - Preliminary 08/11/23 14:55 Nose - Nasal MRSA Culture - Final Constitutional: Present moderate distress Head: Present normocephalic and atraumatic ENT: Present normal exam, normal oropharynx and mucous membranes moist Neck: Present normal inspection and full ROM Respiratory: Present rhonchi, diminished air movement, normal respiratory effort and able to speak in complete sentences; Absent prolonged expiratory phase, wheezes or crackles Cardiac: Present S1/S2, Tachycardia and radial pulses present GI: Present soft and distention; Absent tenderness or guarding Rectal (female): Present deferred (female): Present deferred Skin: Present intact; Absent cyanosis or jaundice Neuro: Present alert, awake and oriented x 3 Extremities: Present normal inspection; Absent clubbing or cyanosis Psychiatric: Present normal affect and cooperative Assessment and Plan *Assessment and plan (1) Pneumonia: Status: Acute Qualifiers: Laterality: left Lung location: upper lobe of lung Pneumonia type: due to unspecified organism Qualified Code(s): J18.9 - Pneumonia, unspecified organism Category: Medical Code(s): J18.9 - Pneumonia, unspecified organism Plan Ms. Skaggs is a 52-year-old female current smoker greater than [id number] smoker is not in any baseline inhaler therapy or oxygen at home, history of breast cancer 15 years ago presented to hospital worsening respiratory distress along with cough and productive phlegm found to be having significant left upper lobe pneumonia and was admitted to the hospital for further evaluation and management. Significant leukocytosis upon admission. Afebrile. On room air saturating 98%. COVID-19 and flu PCR negative. CT chest without contrast reviewed, left upper lobe necrotizing pneumonia. Left hilar adenopathy. No other significant adenopathy noted. Calcifications noted on station 7. CT not concerning for any mass/endobronchial occlusion. Will monitor. Patient was initiated on vancomycin cefepime and azithromycin. Interval update: No acute respiratory vents over the weekend
--- NOTE | 2023-08-15 10:16 | XR_ITS ---
FINAL REPORT TECHNIQUE: Single view chest CLINICAL HISTORY: PNM COMPARISON: 08/11/2023 FINDINGS: A single view of the chest was obtained. The heart and mediastinum are within normal limits. There is persistent, focal left upper lobe opacity consistent with necrotizing pneumonia. There is a small right pleural effusion. There is no pneumothorax. Osseous structures are unremarkable. IMPRESSION: Left upper lobe necrotizing pneumonia, stable. Small right effusion. Reviewed, Interpreted and Dictated by Ludin Good III, MD Transcribed by Puja Miramontes Authenticated and [facility]
[2023-08-15 10:31] LABS: Vancomycin,Trough 6.1 ug/mL (5.0-10.0)
--- NOTE | 2023-08-15 13:59 | EXP.ACUTE.PN ---
Subjective *Date: 08/15/23 *Time: 16:31 Interval history: Interim exam. Stable on room air. No nausea or vomiting or chest pain. Still having prominent cough. Improving weakness. Afebrile. Medical Exam Vital signs and Labs for Last 24 Hours: Vital Signs Temp Pulse Resp BP Pulse Ox O2 Del Method 08/15/23 08:00 98.6 F 117 H 16 114/67 96 Room Air 08/15/23 04:00 98.9 F 108 H 17 109/65 L 97 Room Air 08/15/23 06:49 Room Air 08/15/23 04:54 Room Air 08/15/23 03:00 Room Air 08/15/23 01:00 Room Air 08/14/23 23:00 Room Air 08/14/23 20:00 98 Room Air 08/14/23 21:00 Room Air 08/14/23 19:00 Room Air 08/14/23 20:00 98.4 F 99 H 17 97/62 L 98 Room Air 08/14/23 17:00 Room Air 08/14/23 15:00 Room Air 08/14/23 16:00 98.9 F 106 H 18 92/56 L 97 Room Air Intake and Output 08/14/23 08/15/23 08/15/23 23:59 07:59 15:59 Intake Total 0 / 800 360 / 1070 710 / 1070 Balance 0 / 700 360 / 1070 710 / 1070 Intake: Intake, Oral Amount 0 / 800 360 / 1070 710 / 1070 Other: Weight 38.691 kg Patient Weight 08/15/23 23:59 Weight 38.691 kg Laboratory Results - last 24 hr 08/15/23 06:43: WBC 18.9 H, RBC 2.86 L, Hgb 10.3 L, Hct 31.2 L, MCV 109.2 H, MCH 35.9 H, MCHC 32.8, RDW 13.1, Plt Count 695 H, MPV 7.8, Neut % (Auto) 88.5 H, Lymph % (Auto) 5.9 L, [place] % (Auto) 5.6, Eos % (Auto) 0.0 L, Baso % (Auto) 0.1, Neut # (Auto) 16.7 H, Lymph # (Auto) 1.1, [place] # (Auto) 1.1 H, Eos # (Auto) 0.0, Baso # (Auto) 0.0, Total Counted 100, Neutrophils % (Manual) 93 H, Band Neutrophils % 1.0, Lymphocytes % (Manual) 3 L, Monocytes % (Manual) 3, Platelet Estimate Slight increase, Polychromasia 1+, Anisocytosis 1+, Macrocytosis 1+, Sodium 128 L, Potassium 3.0 L, Chloride 100, Carbon Dioxide 25, Anion Gap 6.0, BUN 6 L, Creatinine 0.50 L, Estimated Creat Clear 81, Estimated GFR 130, Est GFR ( Amer) 157 D, Glucose 90 D, Calcium 7.3 L, Total Bilirubin 0.4, AST 42 H, ALT 21, Alkaline Phosphatase 93, Total Protein 5.7 L, Albumin 2.5 L, Globulin 3.2, Albumin/Globulin Ratio 0.8 L 08/15/23 09:52: Vancomycin Trough 6.1 I & O for Labs for Last 24 Hours: Intake & Output 08/12/23 08/13/23 08/14/23 08/15/23 23:59 23:59 23:59 23:59 Intake Total 2634 / 2634 1350 / 1590 440 / 800 1070 / 1070 Output Total 1 / 501 1450 / 1450 100 / 100 Balance 2633 / 2133 -100 / 140 340 / 700 1070 / 1070 Weight 35 kg 37.648 kg 37.88 kg 38.691 kg Microbiology Reports for the Last 24 Hours: Microbiology 08/12/23 10:05 Sputum - Expectorated Sputum Gram Stain - Final 08/12/23 10:05 Sputum - Expectorated Sputum Sputum Culture - Preliminary 08/11/23 11:44 Blood Blood Culture - Preliminary 08/11/23 11:05 Blood Blood Culture - Preliminary 08/11/23 14:55 Nose - Nasal MRSA Culture - Final Constitutional: Present no acute distress and thin Head: Present atraumatic ENT: Present normal exam Respiratory: Present rhonchi and normal respiratory effort; Absent wheezes or crackles Cardiac: Present Reg Rate and Rhythm GI: Present normal bowel sounds; Absent tenderness Extremities: Present normal inspection and full ROM Skin: Present intact; Absent erythema Neuro: Present Grossly Intact, alert, awake, oriented x 3 and moves all extremities Assessment and Plan *Assessment and plan (1) Pneumonia: Status: Acute Qualifiers: Laterality: left Lung location: upper lobe of lung Pneumonia type: due to unspecified organism Qualified Code(s): J18.9 - Pneumonia, unspecified organism Category: Medical Code(s): J18.9 - Pneumonia, unspecified organism (2) Hyponatremia: Status: Acute Category: Medical Code(s): E87.1 - Hypo-osmolality and hyponatremia (3) Leukocytosis: Status: Acute Category: Medical Code(s): D72.829 - Elevated white blood cell count, unspecified Plan Patient is a 52-year-old female with past medical history
[2023-08-15 15:45] VITALS: BP 115/60; PULSE 111; RESP 16; TEMP 37; O2SAT 96
--- NOTE | 2023-08-15 19:18 | PC.NURSE ---
Patient tyolerating IV antibiotics today and VSS. Patient A&ox4
[2023-08-15 20:00] VITALS: BP 99/60; PULSE 110; RESP 16; TEMP 37.2; O2SAT 97
[2023-08-15 21:53] VITALS: PULSE 90
[2023-08-16 03:55] VITALS: BP 89/54; PULSE 116; RESP 16; TEMP 37.2; O2SAT 97; BMI 16.7
[2023-08-16 05:53] LABS: Basophils % 0.2 % (0.1-2.0); Hematocrit 27.2 % (37.0-47.0); Lymphocytes # 0.9 K/mm3 (0.7-4.5); Lymphocytes % 4.9 % (10-50); Mean Corpuscular HGB Conc 33.9 g/dL (31.8-35.4); Mean Corpuscular Hemoglobin 35.8 pg (27.0-31.2); Mean Corpuscular Volume 105.4 fl (81-99); Monocytes # 2.2 K/mm3 (0.1-1.0); Monocytes % 11.7 % (1.7-9.3); Neutrophils # 15.3 K/mm3 (1.8-7.8); Neutrophils % 83.1 % (37.0-80.0); Platelet Count 684 K/mm3 (142-424); Red Blood Count 2.58 M/mm3 (4.20-5.40); Red Cell Distribution Width 13.3 % (11.5-17.5); White Blood Count 18.4 K/mm3 (4.8-10.8)
[2023-08-16 05:57] LABS: Hemoglobin 9.2 g/dL (12.2-16.2)
[2023-08-16 05:58] LABS: MANUAL DIFFERENTIAL MANUAL DIFFERENTIAL (MANUAL DIFF)
[2023-08-16 06:01] LABS: Chloride 101 mmol/L (98-107); Potassium 3.5 mmoL/L (3.5-5.1); Sodium 128 mmol/L (136-145)
[2023-08-16 06:03] LABS: Blood Urea Nitrogen 4 mg/dl (7-17); Creatinine Clearance Estimated 81 mL/min (50-200); Estimated Glomerular Filt Rate 130 ml/min (>60); GFR (African American) 157 ML/MIN (>60)
[2023-08-16 06:04] LABS: Alanine Aminotransferase 22 U/L (12-78); Albumin Level 2.4 g/dl (3.5-5.0); Albumin/Globulin Ratio 0.8 (1.1-1.8); Alkaline Phosphatase 87 U/L (38-126); Anion Gap 9.5 mEq/L (5-15); Aspartate Amino Transferase 47 U/L (14-36); Bilirubin,Total 0.4 mg/dl (0.2-1.3); Carbon Dioxide 21 mmol/L (22.0-30.0); Glucose 92 mg/dl (74-100); Magnesium 1.5 mg/dl (1.6-2.3); Total Protein,Serum 5.4 g/dl (6.3-8.2)
[2023-08-16 06:11] LABS: Lymphocytes % 4 % (10-50); Monocytes % 11 % (2-9); Neutrophils % 85 % (42-76); Platelet Estimate Moderate Increase; Total Cells Counted 100
[2023-08-16 06:12] LABS: Anisocytosis 1+; Macrocytosis 1+; Poikilocytosis 1+
[2023-08-16 06:13] LABS: Stomatocytes 1+
[2023-08-16 07:32] VITALS: BP 95/57; PULSE 111; RESP 16; TEMP 36.9; O2SAT 97
--- NOTE | 2023-08-16 09:42 | EXP.PULM.PN ---
Subjective *Date: 08/16/23 *Time: 13:55 Interval history: No acute respiratory events overnight. Patient continued to remain on room air. Pulmonology Exam Inpatient Vital signs and Labs for Last 24 Hours: Temp Pulse Resp BP Pulse Ox O2 Del Method 98.5 F 111 H 16 95/57 L 97 Room Air 08/16/23 07:32 08/16/23 07:32 08/16/23 07:32 08/16/23 07:32 08/16/23 07:32 08/16/23 09:00 Laboratory Results - last 24 hr 08/15/23 09:52: Vancomycin Trough 6.1 08/16/23 05:42: WBC 18.4 H, RBC 2.58 L, Hgb 9.2 L D, Hct 27.2 L, MCV 105.4 H, MCH 35.8 H, MCHC 33.9, RDW 13.3, Plt Count 684 H, MPV 8.0, Neut % (Auto) 83.1 H, Lymph % (Auto) 4.9 L, Bland % (Auto) 11.7 H, Eos % (Auto) 0.0 L, Baso % (Auto) 0.2, Neut # (Auto) 15.3 H, Lymph # (Auto) 0.9, Bland # (Auto) 2.2 H, Eos # (Auto) 0.0, Baso # (Auto) 0.0, Total Counted 100, Neutrophils % (Manual) 85 H, Lymphocytes % (Manual) 4 L, Monocytes % (Manual) 11 H, Platelet Estimate Moderate increase, Poikilocytosis 1+, Anisocytosis 1+, Macrocytosis 1+, Stomatocytes 1+, Sodium 128 L, Potassium 3.5, Chloride 101, Carbon Dioxide 21 L, Anion Gap 9.5, BUN 4 L D, Creatinine 0.50 L, Estimated Creat Clear 81, Estimated GFR 130, Est GFR ( Amer) 157, Glucose 92, Calcium 7.0 L, Magnesium 1.5 L, Total Bilirubin 0.4, AST 47 H, ALT 22, Alkaline Phosphatase 87, Total Protein 5.4 L, Albumin 2.4 L, Globulin 3.0, Albumin/Globulin Ratio 0.8 L I & O for Labs for Last 24 Hours: Intake & Output 08/13/23 08/14/23 08/15/23 08/16/23 23:59 23:59 23:59 23:59 Intake Total 1350 / 1590 440 / 800 1310 / 1310 1555 / 1555 Output Total 1450 / 1450 100 / 100 0 / 0 Balance -100 / 140 340 / 700 1310 / 1310 1555 / 1555 Weight 83 lb 83 lb 8.178 oz 85 lb 4.8 oz 85 lb 4.785 oz Microbiology Reports for the Last 24 Hours: Microbiology 08/12/23 10:05 Sputum - Expectorated Sputum Gram Stain - Final 08/12/23 10:05 Sputum - Expectorated Sputum Sputum Culture - Final 08/11/23 11:44 Blood Blood Culture - Preliminary 08/11/23 11:05 Blood Blood Culture - Preliminary Constitutional: Present moderate distress Head: Present normocephalic and atraumatic ENT: Present normal exam, normal oropharynx and mucous membranes moist Neck: Present normal inspection and full ROM Respiratory: Present rhonchi, diminished air movement, normal respiratory effort and able to speak in complete sentences; Absent prolonged expiratory phase, wheezes or crackles Cardiac: Present S1/S2, Tachycardia and radial pulses present GI: Present soft and distention; Absent tenderness or guarding Rectal (female): Present deferred (female): Present deferred Skin: Present intact; Absent cyanosis or jaundice Neuro: Present alert, awake and oriented x 3 Extremities: Present normal inspection; Absent clubbing or cyanosis Psychiatric: Present normal affect and cooperative Assessment and Plan *Assessment and plan (1) Hypomagnesemia: Status: Acute Category: Medical Code(s): E83.42 - Hypomagnesemia Plan Ms. Skaggs is a 52-year-old female current smoker greater than [id number] smoker is not in any baseline inhaler therapy or oxygen at home, history of breast cancer 15 years ago presented to hospital worsening respiratory distress along with cough and productive phlegm found to be having significant left upper lobe pneumonia and was admitted to the hospital for further evaluation and management. Significant leukocytosis upon admission. Afebrile. On room air saturating 98%. COVID-19 and flu PCR negative. CT chest without contrast reviewed, left upper lobe necrotizing pneumonia. Left hilar adenopathy. No other significant adenopathy noted. Calcifications noted on station 7. CT not concerning for any mass/endobronchial occlusion. Will monitor. Patient was initiated on vancomycin cefepime and azithromycin, was eventually de-escalated to cefepime and azithromycin. Nasal MRSA PCR negative. Sputum normal respiratory ridge. Chest x-ray from [facility]
--- NOTE | 2023-08-16 09:44 | XR_ITS ---
FINAL REPORT CLINICAL HISTORY: PNM COMPARISON: The 1 day prior FINDINGS: The heart size is normal. The mediastinum is within normal limits. There is persistent lateral left upper lobe opacity likely representing necrotizing pneumonia. There is worsening opacity in the left midlung that may reflect worsening pneumonia in this region. There is a small right pleural effusion. There is no pneumothorax. The bony thorax is intact. Postoperative changes are seen in the left axilla. IMPRESSION: Persistent lateral left upper lobe pneumonia with probable worsening left midlung pneumonia Reviewed, Interpreted and Dictated by Ludin Good III, MD Transcribed by Rickie Hale Authenticated and . [facility]
--- NOTE | 2023-08-16 11:46 | EXP.DC.SUM ---
General Admission date:: 08/11/23 Discharge date: 08/16/23 HPI HPI HPI: Patient is a 52-year-old female with past medical history of COPD, tobacco use who presented to hospital for fever chills cough body aches nausea vomiting and decreased appetite. Patient has productive cough. On further evaluation patient was noticed to have upper lobe pneumonia. Hospital Course Hospital Course Hospital Course: Patient is a 52-year-old female with past medical history of COPD, tobacco use who presented to hospital for fever chills cough body aches nausea vomiting and decreased appetite. Patient has productive cough. On further evaluation patient was noticed to have upper lobe pneumonia. Patient positive for COVID. Patient has responded well to antibiotics. Able to wean to room air for over 48 hours. Stable for discharge home to continue antibiotic treatment. Will plan for close follow-up with pulmonology. Problems addressed as follows: Left upper lobe necrotizing pneumonia complicated by COVID-positive status. - Pulmonology consulted, appreciate their recommendations and assistance with care. Patient initially started on broad-spectrum antibiotics with cefepime and azithromycin. Showed good improvement and response to therapy. Gradually weaned from oxygen to room air. As she has been stable on room air for over 48 hours, stable to discharge home. Transition to clindamycin to complete antibiotic course. Recommend continuing combivent every 6 hours as needed. White cell count stable at 18 on day of discharge which is improved but still elevated. Needs close follow-up with pulmonology the beginning of next week. Patient remains afebrile and hemodynamically stable. hyponatremia hypokalemia Hypomagnesemia - Na stable at 128, K 3.0, magnesium 1.5, continue supplemental magnesium with 400 mg daily and potassium with 20 mEq twice daily. Plan for close follow-up with pulmonology in the outpatient setting. Stable for discharge home. Exam Data for Last 24 hours Vital signs and Labs for Last 24 Hours: Temp Pulse Resp BP Pulse Ox O2 Del Method 98.5 F 111 H 16 95/57 L 97 Room Air 08/16/23 07:32 08/16/23 07:32 08/16/23 07:32 08/16/23 07:32 08/16/23 07:32 08/16/23 11:00 Laboratory Results - last 24 hr 08/16/23 05:42: WBC 18.4 H, RBC 2.58 L, Hgb 9.2 L D, Hct 27.2 L, MCV 105.4 H, MCH 35.8 H, MCHC 33.9, RDW 13.3, Plt Count 684 H, MPV 8.0, Neut % (Auto) 83.1 H, Lymph % (Auto) 4.9 L, [place] % (Auto) 11.7 H, Eos % (Auto) 0.0 L, Baso % (Auto) 0.2, Neut # (Auto) 15.3 H, Lymph # (Auto) 0.9, [place]ardo # (Auto) 2.2 H, Eos # (Auto) 0.0, Baso # (Auto) 0.0, Total Counted 100, Neutrophils % (Manual) 85 H, Lymphocytes % (Manual) 4 L, Monocytes % (Manual) 11 H, Platelet Estimate Moderate increase, Poikilocytosis 1+, Anisocytosis 1+, Macrocytosis 1+, Stomatocytes 1+, Sodium 128 L, Potassium 3.5, Chloride 101, Carbon Dioxide 21 L, Anion Gap 9.5, BUN 4 L D, Creatinine 0.50 L, Estimated Creat Clear 81, Estimated GFR 130, Est GFR ( Amer) 157, Glucose 92, Calcium 7.0 L, Magnesium 1.5 L, Total Bilirubin 0.4, AST 47 H, ALT 22, Alkaline Phosphatase 87, Total Protein 5.4 L, Albumin 2.4 L, Globulin 3.0, Albumin/Globulin Ratio 0.8 L I & O for Last 24 hours: Intake & Output 08/13/23 08/14/23 08/15/23 08/16/23 23:59 23:59 23:59 23:59 Intake Total 1350 / 1590 440 / 800 1310 / 1310 1555 / 1555 Output Total 1450 / 1450 100 / 100 0 / 0 Balance -100 / 140 340 / 700 1310 / 1310 1555 / 1555 Weight 37.648 kg 37.88 kg 38.691 kg 38.691 kg Microbiology Reports for the Last 24 Hours: Microbiology 08/12/23 10:05 Sputum - Expectorated Sputum Gram Stain - Final 08/12/23 10:05 Sputum - Expectorated Sputum Sputum Culture - Final 08/11/23 11:44 Blood Blood Culture - Preliminary 08/11/23 11:05 Blood Blood Culture - Preliminary Constitutional Constitutional: no acute distress, thin and chronically ill appearing *Routine HEENT Exam Head: Present nor
[2023-08-16 14:13] LABS: Body Fluid Culture, Sterile Not indicated. (.); Organism ID Not indicated. (.); Specimen Source Urine (.); Streptococcus pneumoniae Ag Negative (Negative)
[2023-08-16 15:17] LABS: Legionella pneumophila Urinary Negative (Negative)
--- NOTE | 2023-08-18 13:28 | CARE MANAGER ---
Unable to reach patient via phone to discuss recent discharge. Call attempted X 2 with VM left.
== END 2023-08-16 12:58 | disposition home or self-care (01) | DRG 193 ==
LOC: ER 12:26 → 2ND 12:39
PROVIDERS: Internal Medicine Adolescent Medicine; Internal Medicine Pulmonary Disease; Nurse Practitioner Family; Admitting Provider Internal Medicine; Emergency Provider Student in an Organized Health Care Education/Training Program; Visit Provider Internal Medicine
DX: J18.9 Pneumonia, unspecified organism (principal); U07.1 COVID-19; E87.1 Hypo-osmolality and hyponatremia; J44.0 Chronic obstructive pulmonary disease with (acute) lower respiratory infection; F17.200 Nicotine dependence, unspecified, uncomplicated; Z85.3 Personal history of malignant neoplasm of breast; E87.6 Hypokalemia; E83.42 Hypomagnesemia
CPT/HCPCS: 36415; 71045; 71250; 80048; 80053; 80202; 83605; 83735; 84145; 85007; 85025; 87040; 87070; 87081; 87205; 87636; 87899; 94640; 99291; J0456; J3370; J3475

== ENCOUNTER 2025-03-11 17:15 | Emergency (ER) | payer MEDICAID, SELFPAY ==
--- OUTSIDE RECORDS SUMMARY | 2025-03-11 17:25 | XMS_ITS | Data Portability ---
Author Organization [facility] Address [address] [place] [address] Assessment Encounter Date Assessment Date Assessment LastModified by Organization Details LastModified Time 10/19/2022 10/19/2022 upon arrival pt states she is having chest pain and thinks she is having a heart attack, was asked if she wanted an ambulance she states yes 911 was called. pt was brought to exam room a ekg obtained- nsr, iv started and ns infusing, zofran 4mg iv given. asa 81 mg x 4 tabs given. o2 at 2 liters applied. pt states her nausea has improved and chest pain was more in upper abd now. pt was placed on monitor while waiting for ems, vitals were stable. ems arrived and pt was transported to hospital. efryman Not available 10/19/2022 14:26:49 Plan of Treatment Reminders Order Date Submit Date Provider Last Modified By Organization Details Last Modified Time Details Appointments None recorded. Lab glucose, fingerstick , blood 2022 023 [facility], [address] [place] [address], [phone], 3 17:12:16 Referral None recorded. Procedures None recorded. Surgeries None recorded. Imaging electrocard iogram 2022 023 [facility], [address] [place] [address], [phone], 3 17:12:16 Medication Orders aspirin 81 mg chewable tablet 2022 023 efryman Not available 02/07/202 3 17:12:16 sodium chloride 0.9 % intravenous solution 2022 023 efryman Not available 3 17:12:16 ondansetron HCl (PF) 4 mg/2 mL injection solution 2022 023 efryman Not available 3 17:12:16 Patient TargetsNo targets recorded. Patient InstructionsNo instructions recorded. Reason for Referral None Reported. Results Created Date Observation Date Name Description Value Unit Range Abnormal Flag Note LastModifiedBy Organization Detail LastModifiedTime 10/19/1910/19/2022 gluco se, finge rstic k, blood Blood Glucose: mg/dl 150 Not Available [address], [address], 10/19/2022 11:54:47 10/19/19 23 10/19/2022 gluco se, finge rstic k, blood Reference Range (60-100) abnorm al Not Available [address], [address], 10/19/2022 11:54:47 10/19/19 23 10/19/2022 elect rocar diogr am No observ ation record ed. efryman [address], [address], 10/19/2022 16:47:57 10/19/19 23 10/19/2022 elect rocar diogr am No observ ation record ed. BARCODE [address], [phone], 10/19/2022 14:20:49 Result Notes None recorded. Problems Name Problem SNOMED Code Status Onset Date Resolution Date Notes Provider Name and Address Organization Details Recorded Time Malignant tumor of breast 994280152 Active VANITA Pedraza - [facility] 11:50:01 Problem Notes None recorded. Procedures Surgical History Date Name Laterality Status Provider Name and Address Organization Details Recorded Time 3 IV Infusion completed Pamela Spain [facility] 10/19/2022 11:54:05 Imaging Results None recorded. Procedure Notes None recorded. Medical Equipment None Reported. Medications Name Sig Start Date Stop Date Status Note LastModified by Organization Details LastModified Time clindamycin HCl 300 mg capsule active Not Available Not Available Not Available metronidazol e 500 mg tablet TAKE 1 TABLET BY MOUTH THREE TIMES DAILY active Not Available Not Available Not Available sulfamethoxa zole 800 mg-trimethop rim 160 mg tablet TAKE 1 TABLET BY MOUTH TWICE DAILY active Not Available Not Available No t Available aspirin 81 mg chewable tablet Chew 1 tablet every day by oral route. 2022 active Not Available Not Available Not Avai lable sodium chloride 0.9 % intravenous solution Inject 1000 mL by intravenous route as directed. 2022 active Not Available Not Available Not Avai lable hydroxyzine pamoate 25 mg capsule TAKE ONE CAPSULE BY MOUTH EVERY 8 HOURS NEEDED FOR ITCHING MAY CAUSE DROWSINESS active Not Available Not Available N ot Available chlorhexidin e gluconate 0.12 % mouthwash active Not Available Not Available No t Available ondansetron HCl (PF) 4 mg/2 mL injection solution Take 4 mg by injection route as directed. 2022 active Not Available Not Available Not Avai lable Flowflex COVID-19 Antigen Home Test kit DIRECTED active Not Available Not Available Not Available Vitals Date Recorded Heart rate Oxygen saturation Oxygen saturation in Arterial blood by Pulse oximetry Respiratory rate Systolic And Diastolic Provider Name and Address Organization Details Last Updated DateTime 3 75 /min 98 % 98 % 22 /min 130/80 mm[Hg] Pamela Spain [facility] 3 13:02:48 Social History None recorded. Functional Status None recorded. Mental Status None recorded. Family History Nothing Reported. Medical History No medical history recorded. Gynecological HistoryNo gynecological history recorded. Obstetrics History GPAL:G 0 P 0 0 0 0 Past Encounters Encounter ID Performer Location Encounter Start Date Encounter Closed Date Diagnosis/Indication Diagnosis SNOMED-CT Code Diagnosis ICD10 Code Diagnosis Note [id number] Romel Dove APRN [address] [address] 10/19/2022 11:27:59 10/19/2022 14:31:49 Nausea and vomiting 06842699 R11.2 Chest pain 78022245 R07. 9 Nausea 432016659 R11.0 Health Concerns Section Related Observation LastModified by Organization Detai ls LastModified Time None Recorded Concern Status LastModified by Organization Details LastModified Time None Recorded Advance Directives Directive None Recorded Payers Insurance Date Sequence Insurance Name Policy Number Policy Schuler Covered Member ID Schuler Member ID Guarantor Name 10/19/2022 1 [employer] [place] (MEDICAID HMO) Beckie Skaggs [id number] Beckie Skaggs 10/21/2022 [place] Beckie Skaggs [id number] Beckie Skaggs Notes Date Note Type Note Provider Name and Address Organization Details Recorded Time 10/19/2022 text/html 51 yr old female walked in with chest pain and vomiting. States I think I am having a heart attack .pt denies cardiac hx. hx of left breast ca in 2012. pt states she is feeling soa, nausea,sweaty,v omiting and pain in middle of chest that started this am. Romel Dove, [employer] [address], [place], [address], [place] - [facility] 10/19/2022 14:27:26 OBGyn Episode No OBEpisode recorded.
--- NOTE | 2025-03-11 17:39 | ED_ITS ---
Discharge Plan Disposition Patient Disposition: Home, Self-Care Condition: Good Prescriptions Prescriptions: New amoxicillin-pot clavulanate 875-125 mg tablet 1 tab PO BID 7 Days Qty: 14 0RF No Action nicotine 14 mg/24 hr Patch 24 Hour 14 mg transdermal Q24H 30 Days Qty: 30 0RF potassium chloride [Klor-Con M20] 20 mEq Tablet,Er Particles/Crystals 20 meq PO BID 30 Days Qty: 60 0RF magnesium oxide 400 mg (241.3 mg magnesium) Tablet 400 mg PO DAILY 30 Days Qty: 30 0RF Combivent Respimat 20-100 mcg/actuation Mist 1 puff inhalation QIDP PRN (Reason: shortness of breath or wheezing) 30 Days Qty: 1 0RF clindamycin HCl 300 mg capsule 300 mg PO TID 4 Days Qty: 12 0RF Referrals Follow up/Referrals: Provider,Referral, MD [Primary Care Provider, Medical] - See instructions Activity Restrictions/Add. Instructions Additional Instructions/Restrictions: Please return to the emergency department with any worsening signs or symptoms, recommend ibuprofen Tylenol as needed for symptomatic relief, please follow-up with your dental provider in the upcoming days, please utilize your antibiotic with food as prescribed. Clinical Impressions Clinical Impression: Pain, dental, Dental caries Instructions Patient Instructions: DI for Tooth Decay, DI for Dental Pain Print Language Print Language: [place] Discharge ED Provider: Austin Bennett General Adult HPI <SUSANA Morris - Last Filed: 03/11/25 17:47> General Chief complaint: Dental/Oral Stated complaint: Toothache Time Seen by Provider: 03/11/25 17:25 Mode of Arrival: Ambulatory Source of Information: Patient Limitations: No Limitations History of Present Illness HPI narrative: 54-year-old female presents to the emergency department with right sided dental pain that started this morning, patient attempted to call her dentist today but was unable to get an appointment thus prompting emergency department visit, she admits to pain and swelling to the right dental space/right side of the jaw/face. She denies any fever chills chest pain shortness of breath nausea vomiting, any decreased p.o. intake, no difficulty swallowing, no abdominal pain no nausea no vomiting no constipation no diarrhea no urinary tract hematology, patient is current everyday smoker, denies any drug use, admits to occasional alcohol use, she is that is post left mastectomy for breast cancer, currently in remission, she denies any other real relevant past medical history takes no other medications at home. She has not yet tried any other medication for pain except for ibuprofen which provided little to no relief. Initial triage vitals are unremarkable. Onset (ago): hour(s) Related Data Previous Rx's ?Medication ?Instructions ?Recorded clindamycin HCl 300 mg capsule 300 mg PO TID 4 days #1 2 caps 08/16/23 ipratropium 20 mcg-albuterol 100 1 puff inhalation QID P PRN 08/16/23 mcg/actuation mist for inhalation shortness of breath or wheezing 30 (Combivent Respimat) days #1 ea magnesium oxide 400 mg (241.3 mg 400 mg PO DAILY 30 da ys #30 tabs 08/16/23 magnesium) tablet nicotine 14 mg/24 hr daily 14 mg transdermal Q24H 30 d ays #30 08/16/23 transdermal patch ea potassium chloride 20 mEq 20 meq PO BID 30 days #60 ta bs 08/16/23 tablet,extended release(part/cryst) (Klor-Con M) amoxicillin 875 mg-potassium 1 tab PO BID 7 days #14 t abs 03/11/25 clavulanate 125 mg tablet Allergies Allergy/AdvReac Type Severity Reaction Status Date / Time penicillin G Allergy Severe Hives Verified 08/11/23 11:43 [facility] <SUSANA Morris - Last Filed: 03/11/25 17:47> [facility] Disclaimer: The information contained in this section may have been updated after the patient was seen, as this information can be updated by other users. Medical History (Updated 03/11/25 @ 17:46 by SUSANA Morris) Breast cancer Family History (Updated 08/11/23 @ 14:46 by Beckie Hutchison RN) Other Family history of cancer No significant family history Social History (Updated 08/11/23 @ 14:47 by Beckie Hutchison RN) Smoking Status: Current every day smoker alcohol intake: current current occupational status: other Travel in the last 8 weeks?: None Have you lived/traveled outside [place] in past 30 days?: No Contact w/someone who lives/traveled outside US past 30 days?: No Exposure to someone with infectious disease in past 14 days?: No Do you have a fever (greater than 100.4 F or 38 C)?: No Have you tested positive for COVID-19?: No Exposed to someone with COVID-19 in past 14 days?: No Do you have a sore throat?: No Do you have a cough?: No Do you have any weakness?: No Do you have any diarrhea?: No Are you experiencing any unusual bleeding?: No Do you have any muscle aches/pain?: No Do you have any abdominal pain?: No Are you experiencing loss of taste or smell?: No Other Medical History Have you received the Flu Vaccine for this season: No Have you received the Pneumonia Vaccine: No <SUSANA Morris - Last Filed: 03/11/25 17:47> ROS Obtained: Yes All systems reviewed & no additional complaints except as documented Physical Exam <SUSANA Morris - Last Filed: 03/11/25 17:47> General General appearance: alert and in no apparent distress Head Head exam: atraumatic and normocephalic Eye Eye exam: Present PERRL and EOMI ENT ENT exam: Present normal exam, normal oropharynx, mucous membranes moist and other (Dental caries/poor dentition noted throughout patient's mouth, most notable to the back right sided molar and premolar area, no obvious periapical or periodontal abscess will be amicable for drainage, no peritonsillar abscess, no tonsillar exudate or erythema, oral or pharyngeal edema) Neck Neck exam: Present normal inspection Chest Chest inspection: Present normal inspection and symmetric chest wall rise Respiratory Respiratory exam: Present normal lung sounds bilaterally; Absent respiratory distress Cardiovascular Cardiovascular exam: Present regular rate and normal rhythm Abdominal Exam Abdominal exam: Present soft; Absent tenderness Extremities Exam Extremities exam: Present normal inspection Neurological Exam Neurological exam: Present alert and oriented X3 Psychiatric Psychiatric exam: Present normal affect Skin Skin exam: Present warm and dry Medical Decision Making <SUSANA Morris - Last Filed: 03/11/25 17:47> Medical Records Medical records reviewed: Yes I reviewed the patient's medical records. Screening: Per USPSTF and CDC recommendations, given the prevalence of disease in our region, it is our hospital?s policy to screen for HIV and viral Hepatitis for all patients aged 18 and over and those with ongoing risk factors. Sylvain Inquiry Pt receiving controlled substance: No Sylvain was queried for this patient: No Vital Signs: 03/11/25 17:46 03/11/25 17:59 Temperature 97.9 F 97.9 F Temperature Source Oral Pulse Rate 90 Pulse Rate [Left Radial] 92 H Respiratory Rate 15 16 Blood Pressure 107/78 L Blood Pressure [Right Arm] 107/78 L Blood Pressure Mean [Right Arm] 87 02 Sat by Pulse Oximetry 100 Orders (Tests/Meds): ED MEDICATIONS Discontinued Medications Generic Name Dose Route Start Last Admin Trade Name Freq PRN Reason Stop Dose Admin Hydrocodone Bitart/Acetaminophen 1 tab 03/11/25 17:38 03/11/25 17:53 Hydrocodone/Apap 5/325 Mg Tablet PO 03/11/25 17:39 1 tab ONCE ONE Administration Lidocaine HCl 15 ml 03/11/25 17:38 03/11/25 17:53 Lidocaine 2% Viscous Merari 15ml Udc PO 03/11/25 17:39 15 ml ONCE ONE Administration Medical Decision Narrative: 54-year-old female presents the emergency department with right-sided dental pain, differential diagnose include but not limited to, dental caries, periapical abscess, periodontal abscess among others. I discussed this patient case with the attending physician Will give tooth ball/dental ball for symptomatic relief, will also give 5 mg p.o. [place] for pain, patient will need to follow-up with dentist provider in the upcoming days, there is no periapical peridental abscess will be amicable to drainage here in the emergency department. Patient was given strict ED return precautions and will follow-up with dentist provider as directed, patient voiced understanding and agreed with current treatment plan/discharge plan. Will prescribe Augmentin 875 mg p.o. twice daily for 7 days or until dental follow- up. <Austin Bennett MD - Last Filed: 03/11/25 21:04> Vital Signs: 03/11/25 17:46 03/11/25 17:59 Temperature 97.9 F 97.9 F Temperature Source Oral Pulse Rate 90 Pulse Rate [Left Radial] 92 H Respiratory Rate 15 16 Blood Pressure 107/78 L Blood Pressure [Right Arm] 107/78 L Blood Pressure Mean [Right Arm] 87 02 Sat by Pulse Oximetry 100 Orders (Tests/Meds): ED MEDICATIONS Discontinued Medications Generic Name Dose Route Start Last Admin Trade Name Freq PRN Reason Stop Dose Admin Hydrocodone Bitart/Acetaminophen 1 tab 03/11/25 17:38 03/11/25 17:53 Hydrocodone/Apap 5/325 Mg Tablet PO 03/11/25 17:39 1 tab ONCE ONE Administration Lidocaine HCl 15 ml 03/11/25 17:38 03/11/25 17:53 Lidocaine 2% Viscous Merari 15ml Udc PO 03/11/25 17:39 15 ml ONCE ONE Administration Medical Decision Narrative: 54-year-old female presents the emergency department with right-sided dental pain, differential diagnose include but not limited to, dental caries, periapical abscess, periodontal abscess among others. I discussed this patient case with the attending physician Will give tooth ball/dental ball for symptomatic relief, will also give 5 mg p.o. [place] for pain, patient will need to follow-up with dentist provider in the upcoming days, there is no periapical peridental abscess will be amicable to drainage here in the emergency department. Patient was given strict ED return precautions and will follow-up with dentist provider as directed, patient voiced understanding and agreed with current treatment plan/discharge plan. Will prescribe Augmentin 875 mg p.o. twice daily for 7 days or until dental follow- up. I was consulted by the ROSAS, and we discussed the complexity of the problems being addressed. I approved the treatment and management plan for this patient's care in the Emergency Department, thus performing a substantive portion of the medical decision making. Austin Bennett MD Critical Care <SUSANA Morris - Last Filed: 03/11/25 17:47> Critical Care Time Critical Care Time: No
[2025-03-11 17:46] VITALS: BP 107/78; PULSE 92; RESP 15; TEMP 36.6; O2SAT 100; BMI 20.7
[2025-03-11] MEDS: LIDOCAINE 2% VISCOUS SOL 15ML UDC 15 ML PO (17:53)
[2025-03-11] MEDS: HYDROCODONE/APAP 5/325 MG TABLET 1 TAB PO (17:53)
[2025-03-11 17:59] VITALS: BP 107/78; PULSE 90; RESP 16; TEMP 36.6; O2SAT 100
== END 2025-03-11 18:00 | disposition home or self-care (01) ==
PROVIDERS: Emergency Provider Emergency Medicine
DX: R68.84 Jaw pain (principal); K08.89 Other specified disorders of teeth and supporting structures; F17.210 Nicotine dependence, cigarettes, uncomplicated
CPT/HCPCS: 99283